=== PATIENT | female | born 1930 | race Caucasian/White ===

== ENCOUNTER 2018-05-22 22:58 | Inpatient (IN) | payer MEDICARE ==
[2018-05-22 22:58] VITALS: BMI 29.8
[2018-05-22] MEDS ORDERED: Morphine 4 MG/ML VIAL IVP STA (23:34)
[2018-05-22] MEDS ORDERED: Sodium Chloride 0.9% 1,000 ML IV STA (23:50)
[2018-05-23] MEDS ORDERED: Morphine 4 MG/ML VIAL ONE (00:04)
[2018-05-23 00:09] LABS: BASO # 0.1 K/uL (0.0-0.2); BASO % 0.5 % (0.0-2.0); EOS % 0.1 % (0.0-4.0); HEMOGLOBIN 12.2 g/dL (12.0-16.0); LYMPH # 2.1 K/uL (1.0-4.3); LYMPH % 14.5 % (20.0-40.0); MEAN CELL VOLUME 93.3 fl (81.0-99.0); MEAN CORPUSCULAR HEMOGLOBIN 31.2 pg (27.0-31.0); MEAN CORPUSCULAR HGB CONC 33.5 g/dL (33.0-37.0); MEAN PLATELET VOLUME 10.2 fl (7.2-11.7); MONO # 0.7 K/uL (0.0-0.8); MONO % 4.7 % (0.0-10.0); NEUT # 11.5 K/uL (1.8-7.0); NEUT % 80.2 % (50.0-75.0); RBC 3.9 Mil/uL (3.80-5.20); RED CELL DISTRIBUTION WIDTH 12.8 % (11.5-14.5); WHITE BLOOD COUNT 14.3 K/uL (4.8-10.8)
[2018-05-23 00:12] LABS: INR 1.1; PROTHROMBIN TIME 11.7 Seconds (9.8-13.1)
[2018-05-23 00:13] LABS: VENOUS BLOOD GAS BASE EXCESS -1.7 mmol/L (0.0-2.0); VENOUS BLOOD GAS PCO2 45 mmHg (40-60); VENOUS BLOOD GAS PO2 21 mm/Hg (30-55); VENOUS BLOOD PH 7.34 (7.32-7.43)
[2018-05-23 00:14] LABS: PARTIAL THROMBOPLASTIN TIME 31.2 Seconds (25.6-37.1)
[2018-05-23] MEDS ORDERED: Insulin Regular 100 units/ml SC STA (00:18)
[2018-05-23] MEDS ORDERED: Insulin Regular 100 units/ml IVP STA (00:18)
[2018-05-23] MEDS ORDERED: Insulin Regular 100 units/ml ONE (00:24)
[2018-05-23 00:28] LABS: ALB/GLOB RATIO 1.2 (1.0-2.1); ALBUMIN 3.9 g/dL (3.5-5.0); CALCIUM 9.2 mg/dL (8.4-10.2)
--- NOTE | 2018-05-23 00:54 | ED PDOC ---
Arrival/HPI - General Chief Complaint: Hip Pain Time Seen by Provider: 05/22/18 23:12 Historian: Patient - History of Present Illness Narrative History of Present Illness (Text): 05/23/18 00:54 86 year old female with a history of htn, dm, and high cholesterol presents to the ED with left hip pain. Around 4 pm today, patient was walking without the walkers she is supposed to use and consequently fell down. She now has sever left hip pain and is unable to ambulate. Patient feels very tired, has loss of appetite, but denies nausea, vomiting, or weakness/numbness to foot. PMD: Dr. Montalvo Time/Duration: Other (x9 hours) Symptom Onset: Sudden Severity Level: Severe Context: Walking (when she fell) Past Medical History - Provider Review Nursing Documentation Reviewed: Yes - Travel History Have you recently traveled outside [place] w/in the past 3 mons?: No - Cardiac Hx Hypertension: Yes Other/Comment: high cholesterol - Pulmonary Hx Asthma: Yes - Renal Hx Renal Disorder: No Hx Dialysis: No - Endocrine/Metabolic Hx Diabetes Mellitus Type 2: Yes Hx Hypothyroidism: Yes - Integumentary Hx Dermatological Disorder: No - Musculoskeletal/Rheumatological Hx Falls: Yes (TODAY) - Genitourinary/Gynecological Hx Genitourinary Disorders: No - Psychiatric Hx Substance Use: No - Surgical History Hx Cholecystectomy: Yes - Anesthesia Hx Anesthesia: No Family/Social History - Physician Review Nursing Documentation Reviewed: Yes Family/Social History: Unknown Family HX Smoking Status: Never Smoked Hx Alcohol Use: No Hx Substance Use: No Allergies/Home Meds Allergies/Adverse Reactions: Allergies No Known Allergies Allergy (Verified 05/22/18 23:00) Home Medications: Home Meds Medication Instructions Recorded Confirmed Glipizide [Glipizide Xl] 10 mg PO BID 12/01/15 12/01/15 Metformin HCl [Glucophage] 500 mg PO BID 12/01/15 12/01/15 SITagliptin [Januvia] 100 mg PO DAILY 12/01/15 12/01/15 Simvastatin [Zocor] 40 mg PO HS 12/01/15 12/01/15 hydroCHLOROthiazide [Hydrodiuril] 25 mg PO DAILY PRN 12/01/15 12/01/15 Review of Systems - Physician Review All systems were reviewed & negative as marked: Yes - Review of Systems Gastrointestinal: Appetite Changes (loss of appetite). absent: Nausea, Vomiting Musculoskeletal: Other (left hip pain ) Neurological: Other (no weakness or numbness to foot) Physical Exam Vital Signs Reviewed: Yes Vital Signs Temp Pulse Resp BP Pulse Ox 05/23/18 18:00 98.6 F 90 15 140/67 99 05/23/18 12:00 98.7 F 88 16 136/70 98 05/23/18 06:25 80 19 125/62 99 05/23/18 03:22 98 H 17 143/69 95 05/22/18 23:00 98.8 F 82 16 139/68 98 Appearance: Positive for: Uncomfortable, Other (acute painful distress) Mental Status: Positive for: Alert and Oriented X 3 Finger Stick Blood Glucose: 500 - Systems Exam Head: Present: Atraumatic, Normocephalic Pupils: Present: PERRL Extroacular Muscles: Present: EOMI Mouth: No: Moist Mucous Membranes (tacky mucous membranes) Pharnyx: Present: Normal (clear) Neck: Present: Normal Range of Motion Respiratory/Chest: Present: Clear to Auscultation. No: Respiratory Distress Cardiovascular: Present: Regular Rate and Rhythm. No: Murmurs Abdomen: No: Tenderness, Distention Upper Extremity: Present: Normal Inspection Lower Extremity: Present: Capillary Refill < 2 s, Other (Left hip held in external rotation and is shortened, normal flexion and extension of knee, normal plantar flexion and dorsiflexion of ankle, light touch intact in left foot, leg roll elicits pain) Neurological: Present: GCS=15, CN II-XII Intact, Speech Normal Skin: Present: Warm, Dry Psychiatric: Present: Alert, Oriented x 3 Medical Decision Making ED Course and Treatment: 05/23/18 01:07 Time: 2325 Initial Impression: Left hip pain Differential diagnoses include but are not limited to: fracture versus contusion or strain Patient found to be hyperglycemia in ER Differential diagnoses include but are not limited to: DKA, HHS, or electrolyte abnormalities Initial Plan: --VBG --EKG --BMP --Creatine phosphokinase --Magnesium --Osmolality --Phosphorus --Urine dip --CBC with differentials --PTT --Prothrombin time --CXR --Morphine 3 mg IVP --Hip XR Time: 0018 --Insulin 10 units Time: 0056 --Orthopedic consult --Labs demonstrate sever hyperglycemia and hyperkalemia. XR demonstrates comminuted let hip fracture. Time: 50 --Case discussed with Dr. Sotomayor for admission. Scribe Attestation: Documented by Reyna Wolfe, acting as a scribe for Anjali Berrios MD Provider Scribe Attestation: All medical record entries made by the Scribe were at my direction and personally dictated by me. I have reviewed the chart and agree that the record accurately reflects my personal performance of the history, physical exam, medical decision making, and the department course for this patient. I have also personally directed, reviewed, and agree with the discharge instructions and disposition. - Lab Interpretations Lab Results: 05/22/18 23:17 05/22/18 23:17 Lab Results 05/22/18 23:46: pO2 21 L, VBG pH 7.34, VBG pCO2 45, VBG HCO3 22.0, VBG Total CO2 25.7, VBG O2 Sat (Calc) 37.2 L, VBG Base Excess -1.7 L, VBG Potassium 6.3 H* , Glucose 600 H*, Lactate 3.0 H, FiO2 21.0, Crit Value Called To Dr anjali berrios, Crit Value Called By , Crit Value Read Back Y, Blood Gas Notified Time 13, Sodium 130.0 L, Chloride 97.0 L, Venous Blood Potassium 6.3 H* 05/22/18 23:17: PT 11.7, INR 1.1, APTT 31.2 05/22/18 23:17: Serum Osmolality 318 H 05/22/18 23:17: Sodium 133, Potassium 6.2 H* D, Chloride 98, Carbon Dioxide 24, Anion Gap 17, BUN 29 H, Creatinine 1.3 H, Est GFR ( Amer) 47, Est GFR ( Non-Af Amer) 39, Random Glucose 593 H* D, Calcium 9.2, Phosphorus 4.1, Magnesium 2.0, Total Bilirubin 1.6 H, AST 61 H, ALT 53 H D, Alkaline Phosphatase 104, Total Creatine Kinase 30, Total Protein 7.1, Albumin 3.9, Globulin 3.1, Albumin/Globulin Ratio 1.2 05/22/18 23:17: WBC 14.3 H D, RBC 3.90, Hgb 12.2, Hct 36.4, MCV 93.3, MCH 31.2 H , MCHC 33.5, RDW 12.8, Plt Count 190, MPV 10.2, Neut % (Auto) 80.2 H, Lymph % ( Auto) 14.5 L, [place] % (Auto) 4.7, Eos % (Auto) 0.1, Baso % (Auto) 0.5, Neut # ( Auto) 11.5 H, Lymph # (Auto) 2.1, [place] # (Auto) 0.7, Eos # (Auto) 0.0, Baso # ( Auto) 0.1 - RAD Interpretation Radiology Orders: 05/22/18 23:25 CHEST ONE VIEW [RAD] Stat HIP MIN 2V W/ PELVIS LT [RAD] Stat - Medication Orders Current Medication Orders: Albuterol/Ipratropium (Duoneb 3 Mg/0.5 Mg (3 Ml) Ud) 3 ml INH RQ6 PRN PRN Reason: Shortness of Breath Last Admin: 05/23/18 03:23 Dose: 3 ml Docusate Sodium (Colace) 100 mg PO BID [facility] Last Admin: 05/24/18 17:33 Dose: 100 mg Ferrous Sulfate (Feosol) 325 mg PO BID [facility] Last Admin: 05/24/18 17:32 Dose: 325 mg Cefazolin Sodium 1 gm/ Sodium (Chloride) 100 mls @ 100 mls/hr IVPB Q12 NILDA PRN Reason: Protocol Last Admin: 05/24/18 20:53 Dose: 100 mls/hr eMAR Start Stop Document 05/24/18 20:53 RM (Rec: 05/24/18 20:54 RM [id number]) Intravenous Solution Start Date 05/24/18 Start Time 20:54 End Date 05/24/18 End time 21:54 Total Infusion Time 60 Sodium Chloride (Sodium Chloride 0.9%) 1,000 mls @ 100 mls/hr IV .Q10H [facility] Stop: 05/25/18 11:46 Last Admin: 05/24/18 13:21 Dose: 100 mls/hr eMAR Start Stop Document 05/24/18 13:21 KMD (Rec: 05/24/18 13:21 KMD [id number]) Intravenous Solution Start Date 05/24/18 Start Time 13:21 Insulin Detemir (Levemir) 10 units SC [facility] Last Admin: 05/23/18 22:08 Dose: 10 u MAR Blood Glucose Document 05/23/18 22:08 FTT (Rec: 05/23/18 22:08 FTT [id number]) Blood Glucose Finger Stick Blood Glucose (70-120) 173 Subcutaneous Administrations Document 05/23/18 22:08 FTT (Rec: 05/23/18 22:08 FTT [id number]) Charges for Administration # of Subcutaneous Administrations 1 Insulin Human Regular (Humulin R) 0 units SC [facility] PRN Reason: Protocol Last Admin: 05/24/18 17:33 Dose: 6 u Subcutaneous Administrations Document 05/24/18 17:33 KMD (Rec: 05/24/18 17:33 KMD [id number]) Injection Site MAR Injection Site Left Arm Charges for Administration # of Subcutaneous Administrations 1 Morphine Sulfate (Morphine) 2 mg IVP Q4 PRN PRN Reason: Pain, severe (8-10) Last Admin: 05/24/18 03:26 Dose: 2 mg MAR Pain Assessment Document 05/24/18 03:26 FTT (Rec: 05/24/18 03:27 FTT [id number]) Pain Reassessment Is this a pain reassessment? No Sleep Is patient sleeping during reassessment? No Presence of Pain Presence of Pain Yes Pain Scale Used Pain Scale Used Numeric Location Left, Right or Bilateral Left Pain Location Body Site Hip Leg Description Description Intermittent Intensity of Pain at present 8 Acceptable Level of Pain 0 Pain Behavior Moaning Irritability Facial Grimacing Aggravating Factors ADL's Alleviating Factors/Management Medication Techniques Alleviating Factors Medication IVP Administration Document 05/24/18 03:26 FTT (Rec: 05/24/18 03:27 FTT [id number]) Charges for Administration # of IVP Administrations 1 Re-Assess: [facility] Pain Reassessment Document 05/24/18 03:56 FTT (Rec: 05/24/18 06:01 FTT [id number]) Sleep Is patient sleeping during reassessment? Yes Pain Reassessment Pain not relieved and LIP/MD was Yes notified Pain Scale Used Numeric Pain Scale Level 0 Morphine Sulfate (Morphine) 1 mg IVP Q4 PRN PRN Reason: Pain, moderate (4-7) Last Admin: 05/24/18 10:46 Dose: 1 mg [facility] Pain Assessment Document 05/24/18 10:46 KMD (Rec: 05/24/18 10:47 KMD [id number]) Pain Reassessment Is this a pain reassessment? No Sleep Is patient sleeping during reassessment? No Presence of Pain Presence of Pain Yes Pain Scale Used Pain Scale Used Numeric Location Left, Right or Bilateral Left Pain Location Body Site Hip Description Description Constant Intensity of Pain at present 7 Pain Behavior Irritability Aggravating Factors Changing Position Alleviating Factors/Management Medication Techniques Inactivity Alleviating Factors Inactivity IVP Administration Document 05/24/18 10:46 KMD (Rec: 05/24/18 10:47 KMD [id number]) Charges for Administration # of IVP Administrations 1 Re-Assess: [facility] Pain Reassessment Document 05/24/18 11:16 KMD (Rec: 05/24/18 13:24 KMD [id number]) Sleep Is patient sleeping during reassessment? Yes Pain Reassessment Pain Scale Used FLACC Pain Scale Level 0 Discontinued Medications Acetaminophen (Tylenol 325mg Tab) 650 mg PO STAT STA Stop: 05/24/18 19:50 Last Admin: 05/24/18 20:08 Dose: 650 mg [facility] Pain/Vitals Document 05/24/18 20:08 RM (Rec: 05/24/18 20:08 RM [id number]) Pain Reassessment Is This A Pain ReAssessment? No Vitals Temperature (97.6 F-99.6 F) 102.2 F Temperature Source Oral Sodium Chloride (Sodium Chloride 0.9%) 1,000 mls @ 1,000 mls/hr IV .Q1H STA Stop: 05/23/18 00:49 Last Admin: 05/23/18 00:05 Dose: 1,000 mls/hr eMAR Start Stop Document 05/23/18 00:05 ARACELIS (Rec: 05/23/18 00:05 ARACELIS [id number]) Intravenous Solution Start Date 05/23/18 Start Time 00:05 End Date 05/23/18 End time 01:05 Total Infusion Time 60 Sodium Chloride (Sodium Chloride 0.9%) 1,000 mls @ 150 mls/hr IV .Q6H40M NILDA Stop: 05/23/18 15:34 Last Admin: 05/23/18 14:13 Dose: 150 mls/hr eMAR Start Stop Document 05/23/18 14:13 [facility] (Rec: 05/23/18 14:13 [id number] Intravenous Solution Start Date 05/23/18 Start Time 14:13 End Date 05/23/18 Insulin Detemir (Levemir) 10 units SC STAT [facility] Stop: 05/23/18 02:04 Last Admin: 05/23/18 03:23 Dose: 10 units Subcutaneous Administrations Document 05/23/18 03:23 RR (Rec: 05/23/18 03:23 RR [id number]) Injection Site MAR Injection Site Right Deltoid Charges for Administration # of Subcutaneous Administrations 1 Insulin Human Regular (Humulin R) 10 units SC STAT ST[facility] Stop: 05/23/18 00:19 Last Admin: 05/23/18 00:30 Dose: 10 units Subcutaneous Administrations Document 05/23/18 00:30 RR (Rec: 05/23/18 00:56 RR [id number]) Injection Site MAR Injection Site Left Deltoid Charges for Administration # of Subcutaneous Administrations 1 Insulin Human Regular (Humulin R) 10 units IVP STAT STA Stop: 05/23/18 00:19 Last Admin: 05/23/18 00:30 Dose: 10 units IVP Administration Document 05/23/18 00:30 RR (Rec: 05/23/18 00:56 RR [id number]) Charges for Administration # of IVP Administrations 1 Insulin Human Regular (Humulin R) 0 units SC Q4H NILDA PRN Reason: Protocol Insulin Human Regular (Humulin R) 0 units SC Q2H NILDA PRN Reason: Protocol Insulin Human Regular (Humulin R) 0 units SC Q4H NILDA PRN Reason: Protocol Last Admin: 05/23/18 17:36 Dose: 3 units Subcutaneous Administrations Document 05/23/18 17:36 MB (Rec: 05/23/18 17:36 MB [id number]) Charges for Administration # of Subcutaneous Administrations 1 Morphine Sulfate (Morphine) 3 mg IVP STAT STA Stop: 05/22/18 23:35 Last Admin: 05/23/18 00:04 Dose: 3 mg [facility] Pain Assessment Document 05/23/18 00:04 ARACELIS (Rec: 05/23/18 00:05 ARACELIS [id number]) Pain Reassessment Is this a pain reassessment? No Sleep Is patient sleeping during reassessment? No Presence of Pain Presence of Pain Yes Pain Scale Used Pain Scale Used Numeric Location Left, Right or Bilateral Left Pain Location Body Site Hip Description Description Constant Intensity of Pain at present 10 IVP Administration Document 05/23/18 00:04 ARACELIS (Rec: 05/23/18 00:05 ARACELIS [id number]) Charges for Administration # of IVP Administrations 1 Re-Assess: [facility] Pain Assessment Document 05/23/18 00:34 RR (Rec: 05/23/18 00:57 RR [id number]) Pain Reassessment Is this a pain reassessment? Yes Sleep Is patient sleeping during reassessment? No Presence of Pain Presence of Pain Yes Location Left, Right or Bilateral Left Pain Location Body Site Hip Disposition/Present on Arrival - Present on Arrival Any Indicators Present on Arrival: Yes History of DVT/PE: No History of Uncontrolled Diabetes: Yes Urinary Catheter: No - Disposition Have Diagnosis and Disposition been Completed?: Yes Diagnosis: Hip fracture, Hyperglycemia Disposition: HOSPITALIZED Disposition Time: 00:00 Patient Problems: Current Active Problems Problem Status Onset Hip fracture Acute Hyperglycemia Acute Condition: GUARDED
--- NOTE | 2018-05-23 01:52 | CP.PCM.HP ---
History of Present Illness - History of Present Illness History of Present Illness: PMD: Dr. Montalvo Chief Complaint: Fall/ Left hip pain The patient was seen and examined in the ED with her family present HPI: The patient speaks Maced[place] and the hx was obtained from the Family members and after review of the medial records. This is an 87 years old female with hx of Asthma, DM II and Hypothyroidism, using a walker at home. Tonight she was ambulating without her walker when she loose balance and fell . She complains of left hip pain. No headaches, dizziness, chest pain, coughing, vomits, Palpitation, diarrhea nor urinary symptoms. PMH: Asthma; DM II; Hypothyroidism; PSH: Family denies Surgical Hx SH: No illegal drug use; Never Smoked; No alcohol use; Live with the family FH: States: No known amily hx Allergies: NKDA Medication: Reviewed Present on Admission - Present on Admission Any Indicators Present on Admission: No History of DVT/PE: No History of Uncontrolled Diabetes: Yes Urinary Catheter: No Decubitus Ulcer Present: No Review of Systems - Constitutional Constitutional: Daytime Sleepiness. absent: Anorexia, Chills, Fever, Headache, Lethargy, Weakness - EENT Eyes: Requires Corrective Lenses. absent: Blurred Vision, Diplopia, Floaters Ears: absent: Decreased Hearing, Ear Discharge, Ear Pain, Tinnitus Nose/Mouth/Throat: absent: Epistaxis, Nasal Congestion, Nasal Discharge - Cardiovascular Cardiovascular: absent: Chest Pain, Dyspnea, Edema, Radiating Pain - Gastrointestinal Gastrointestinal: absent: Abdominal Pain, Diarrhea, Nausea, Vomiting - Genitourinary Genitourinary: absent: Dysuria, Flank Pain, Hematuria, Urinary Frequency - Musculoskeletal Musculoskeletal: Arthralgias. absent: Back Pain, Muscle Weakness, Neck Pain - Integumentary Integumentary: absent: Pruritus, Rash, Skin Ulcer, Sores, Striae, Swelling - Neurological Neurological: absent: Confusion, Numbness, Focal Weakness - Psychiatric Psychiatric: absent: Anxiety, Depression, Panic Attacks - Endocrine Endocrine: Polyuria. absent: Polyphagia - Hematologic/Lymphatic Hematologic: absent: Easy Bleeding, Easy Bruising Past Patient History - Past Medical History & Family History Past Medical History?: Yes - Past Social History Smoking Status: Never Smoked Chewing Tobacco Use: No Cigar Use: No Alcohol: None Drugs: Denies Home Situation {Lives}: With Family - CARDIAC Hx Hypertension: Yes Other/Comment: high cholesterol - PULMONARY Hx Asthma: Yes - NEUROLOGICAL Hx Neurological Disorder: No - RENAL Hx Chronic Kidney Disease: No Hx Dialysis: No - ENDOCRINE/METABOLIC Hx Diabetes Mellitus Type 2: Yes Hx Hypothyroidism: Yes - INTEGUMENTARY Hx Dermatological Problems: No - MUSCULOSKELETAL/RHEUMATOLOGICAL Hx Falls: Yes (TODAY) - GASTROINTESTINAL Hx Gastrointestinal Disorders: No - GENITOURINARY/GYNECOLOGICAL Hx Genitourinary Disorders: No - PSYCHIATRIC Hx Psychophysiologic Disorder: No Hx Substance Use: No - SURGICAL HISTORY Hx Cholecystectomy: Yes - ANESTHESIA Hx Anesthesia: No Meds Allergies/Adverse Reactions: Allergies Allergy/AdvReac Type Severity Reaction Status Date / Time No Known Allergies Allergy Verified 05/22/18 23:00 Physical Exam - Constitutional Appears: No Acute Distress - Head Exam Head Exam: ATRAUMATIC, NORMAL INSPECTION, NORMOCEPHALIC - Eye Exam Eye Exam: EOMI, Normal appearance Pupil Exam: NORMAL ACCOMODATION, PERRL - ENT Exam ENT Exam: Mucous Membranes Moist, Normal Exam, Normal External Ear Exam - Neck Exam Neck exam: Positive for: Full Rom, Normal Inspection. Negative for: Lymphadenopathy, Tenderness - Respiratory Exam Respiratory Exam: Clear to Auscultation Bilateral. absent: Rales, Rhonchi, Wheezes - Cardiovascular Exam Cardiovascular Exam: REGULAR RHYTHM, +S1, +S2. absent: Gallop, JVD - GI/Abdominal Exam GI & Abdominal Exam: Normal Bowel Sounds, Soft. absent: Mass, Organomegaly, Tenderness - Rectal Exam Rectal Exam: Deferred - Extremities Exam Extremities exam: Positive for: full ROM, normal inspection, tenderness. Negative for: calf tenderness, joint swelling, pedal edema - Back Exam Back exam: NORMAL INSPECTION. absent: CVA tenderness (L), CVA tenderness (R) - Neurological Exam Neurological exam: Alert, CN II-XII Intact, Oriented x3, Reflexes Normal - Psychiatric Exam Psychiatric exam: Normal Affect, Normal Mood - Skin Skin Exam: Intact, Normal Color, Warm Results - Vital Signs Recent Vital Signs: Last Vital Signs Temp 98.8 F 05/22/18 23:00 Pulse 82 05/22/18 23:00 Resp 16 05/22/18 23:00 BP 139/68 05/22/18 23:00 Pulse Ox 98 05/22/18 23:00 - Labs Result Diagrams: 05/22/18 23:17 05/23/18 03:00 Labs: Laboratory Results - last 24 hr 05/22/18 05/22/18 05/22/18 23:17 23:17 23:17 WBC 14.3 H D RBC 3.90 Hgb 12.2 Hct 36.4 MCV 93.3 MCH 31.2 H MCHC 33.5 RDW 12.8 Plt Count 190 MPV 10.2 Neut % (Auto) 80.2 H Lymph % (Auto) 14.5 L [place] % (Auto) 4.7 Eos % (Auto) 0.1 Baso % (Auto) 0.5 Neut # (Auto) 11.5 H Lymph # (Auto) 2.1 [place] # (Auto) 0.7 Eos # (Auto) 0.0 Baso # (Auto) 0.1 PT INR APTT pO2 VBG pH VBG pCO2 VBG HCO3 VBG Total CO2 VBG O2 Sat (Calc) VBG Base Excess VBG Potassium Glucose Lactate FiO2 Crit Value Called To Crit Value Called By Crit Value Read Back Blood Gas Notified Time Sodium 133 Potassium 6.2 H* D Chloride 98 Carbon Dioxide 24 Anion Gap 17 BUN 29 H Creatinine 1.3 H Est GFR ( Amer) 47 Est GFR (Non-Af Amer) 39 Random Glucose 593 H* D Serum Osmolality 318 H Calcium 9.2 Phosphorus 4.1 Magnesium 2.0 Total Bilirubin 1.6 H AST 61 H ALT 53 H D Alkaline Phosphatase 104 Total Creatine Kinase 30 Total Protein 7.1 Albumin 3.9 Globulin 3.1 Albumin/Globulin Ratio 1.2 Venous Blood Potassium 05/22/18 05/22/18 23:17 23:46 WBC RBC Hgb Hct MCV MCH MCHC RDW Plt Count MPV Neut % (Auto) Lymph % (Auto) [place] % (Auto) Eos % (Auto) Baso % (Auto) Neut # (Auto) Lymph # (Auto) [place] # (Auto) Eos # (Auto) Baso # (Auto) PT 11.7 INR 1.1 APTT 31.2 pO2 21 L VBG pH 7.34 VBG pCO2 45 VBG HCO3 22.0 VBG Total CO2 25.7 VBG O2 Sat (Calc) 37.2 L VBG Base Excess -1.7 L VBG Potassium 6.3 H* Glucose 600 H* Lactate 3.0 H FiO2 21.0 Crit Value Called To Dr anjali berrios Crit Value Called By Luis Crit Value Read Back Y Blood Gas Notified Time 13 Sodium 130.0 L Potassium Chloride 97.0 L Carbon Dioxide Anion Gap BUN Creatinine Est GFR ( Amer) Est GFR (Non-Af Amer) Random Glucose Serum Osmolality Calcium Phosphorus Magnesium Total Bilirubin AST ALT Alkaline Phosphatase Total Creatine Kinase Total Protein Albumin Globulin Albumin/Globulin Ratio Venous Blood Potassium 6.3 H* - EKG Data EKG comments: NSR 75/min LAD IVCD - Imaging and Cardiology Chest x-ray Status: Image reviewed by me Additional comment: Cardiomegaly No infiltrates X-Ray left hip Status: Image reviewed by me Additional comment: left Intertrochanteric fracture Assessment & Plan - Assessment and Plan (Free Text) Assessment: #. Left Intertrochanteric hip Fracture #. DM II with hyperglycemia #. Hyperkalemia #. Dehydration #. UTI #. Leukocytosis Plan: 87 years old female with hx of Asthma, DM II and Hypothyroidism, not using her walker at home tonight, loose her balance and fell . She complains of left hip pain. #. Left Intertrochanteric hip Fracture - consult Orthopedic Dr Carmichael - Orthopedic Management - Pain Management - NPO - Cardiac Clearance by Dr Ruvalcaba #. DM II with hyperglycemia - IV fluids 1 liter in ED . Continue iwth NS at 150Mls/hr - Regular insulin Sliding scale according to accucheck Q2H and change to Q6 when Glucose is less than 200mg/dl - Levemir - Hold Metformin/Januvia/Glipizide - HbA1c #. Hyperkalemia most likely secondary to the hyperglycemia - Treat hyperglycemia - Follow electrolytes #. UTI - Cefazolin 1gm Q12 - follow Urine culture - Blood culture #. Dehydration - IV fluids - follow Renal labs #. Neutrophilic Leukocytosis reactive - Follow WBC #. DVT prophylaxis with SCD Start Anticoagulant after surgery #. Code Status: Full - Date & Time Date: 05/23/18 Time: 01:52
[2018-05-23] MEDS ORDERED: Insulin Regular 100 units/ml SC SCH ×2 (02:00→02:01)
[2018-05-23] MEDS ORDERED: Insulin Detemir 100 Units/ml Inj SC STA (02:03)
[2018-05-23 02:32] LABS: SQUAMOUS EPITHIAL < 1 /hpf (0-5); URINE BACTERIA OCC (<OCC); URINE BILIRUBIN NEGATIVE (NEGATIVE); URINE BLOOD NEGATIVE (NEGATIVE); URINE CLARITY CLOUDY (Clear); URINE COLOR YELLOW (YELLOW); URINE GLUCOSE (UA) >=500 mg/dL (Normal); URINE LEUKOCYTE ESTERASE LARGE Leu/uL (Negative); URINE PROTEIN NEGATIVE (NEGATIVE); URINE UROBILINOGEN 0.2-1.0 mg/dL (0.2-1.0); WBC CLUMPS MANY /hpf
[2018-05-23] MEDS: Sodium Chloride 0.9% 1,000 ML IV SCH ×2 (02:38→14:13)
[2018-05-23] MEDS ORDERED: Albuterol-Ipratrop 3 mg / 0.5 (3 ml) UD ONE (03:07)
[2018-05-23] MEDS: Albuterol-Ipratrop 3 mg / 0.5 (3 ml) UD INH PRN (03:23)
[2018-05-23 03:48] LABS: CALCIUM 8.6 mg/dL (8.4-10.2)
[2018-05-23] MEDS: ceFAZolin 1 GM in Sodium Chloride 0.9% 100 ML IVPB SCH ×3 (04:33→21:57)
[2018-05-23 07:34] LABS: ALB/GLOB RATIO 1.1 (1.0-2.1); ALBUMIN 3.1 g/dL (3.5-5.0); CALCIUM 8.6 mg/dL (8.4-10.2)
[2018-05-23] MEDS: Insulin Regular 100 units/ml SC SCH ×4 (08:44→22:05)
--- NOTE | 2018-05-23 09:45 | RAD ---
Date of service: 05/23/2018 HISTORY: LEFT hip pain s/p fall COMPARISON: No prior FINDINGS: BONES: Comminuted fracture of the femoral neck. JOINTS: Normal. No osteoarthritis. SOFT TISSUE: Normal. OTHER FINDINGS: None . IMPRESSION: Comminuted fracture of the femoral neck.
--- NOTE | 2018-05-23 09:55 | RAD ---
Date of service: 05/23/2018 PROCEDURE: CHEST RADIOGRAPH, 1 VIEW HISTORY: hip pain fall COMPARISON: None available. FINDINGS: LUNGS: Clear. PLEURA: No pneumothorax or pleural fluid seen. CARDIOVASCULAR: Normal. OSSEOUS STRUCTURES: No significant abnormalities. VISUALIZED UPPER ABDOMEN: Normal. OTHER FINDINGS: None. IMPRESSION: No active disease.
--- NOTE | 2018-05-23 10:15 | CP.PCM.CON ---
History of Present Illness - History of Present Illness History of Present Illness: ID: 87 yo male CC: severe pain and restricted ROM L HIP; pt with shortening and external rotation L lower extremity HPI: 87 yo female presents s/p fall and torsional injury to L lower extremity. Pt presents with severe discomfort, pain nand rstricted ROM L lowere xtremity and inability to bear weight after pt had sustained torsional injury to L lower extremity. Pt presents with marked discomfort, pain and rstricted L lhip ROM Pt admitted for medical stabilization and for ORIF Friday Past Patient History - Past Medical History & Family History Past Medical History?: Yes - Past Social History Smoking Status: Never Smoked Chewing Tobacco Use: No Cigar Use: No Alcohol: None Drugs: Denies Home Situation {Lives}: With Family - CARDIAC Hx Hypertension: Yes Other/Comment: high cholesterol - PULMONARY Hx Asthma: Yes - NEUROLOGICAL Hx Neurological Disorder: No - RENAL Hx Chronic Kidney Disease: No Hx Dialysis: No - ENDOCRINE/METABOLIC Hx Diabetes Mellitus Type 2: Yes Hx Hypothyroidism: Yes - INTEGUMENTARY Hx Dermatological Problems: No - MUSCULOSKELETAL/RHEUMATOLOGICAL Hx Falls: Yes (TODAY) - GASTROINTESTINAL Hx Gastrointestinal Disorders: No - GENITOURINARY/GYNECOLOGICAL Hx Genitourinary Disorders: No - PSYCHIATRIC Hx Psychophysiologic Disorder: No Hx Substance Use: No - SURGICAL HISTORY Hx Cholecystectomy: Yes - ANESTHESIA Hx Anesthesia: No Meds Allergies/Adverse Reactions: Allergies Allergy/AdvReac Type Severity Reaction Status Date / Time No Known Allergies Allergy Verified 05/22/18 23:00 - Medications Medications: Current Medications Albuterol/Ipratropium (Duoneb 3 Mg/0.5 Mg (3 Ml) Ud) 3 ml INH RQ6 PRN PRN Reason: Shortness of Breath Last Admin: 05/23/18 03:23 Dose: 3 ml Sodium Chloride (Sodium Chloride 0.9%) 1,000 mls @ 150 mls/hr IV .Q6H40M NILDA Stop: 05/23/18 15:34 Last Admin: 05/23/18 02:38 Dose: 150 mls/hr Cefazolin Sodium 1 gm/ Sodium (Chloride) 100 mls @ 100 mls/hr IVPB Q12 NILDA PRN Reason: Protocol Last Admin: 05/23/18 04:33 Dose: 100 mls/hr Insulin Detemir (Levemir) 10 units SC HS NILDA Insulin Human Regular (Humulin R) 0 units SC Q4H NILDA PRN Reason: Protocol Last Admin: 05/23/18 08:44 Dose: 6 units Morphine Sulfate (Morphine) 2 mg IVP Q4 PRN PRN Reason: Pain, severe (8-10) Morphine Sulfate (Morphine) 1 mg IVP Q4 PRN PRN Reason: Pain, moderate (4-7) Last Admin: 05/23/18 08:49 Dose: 1 mg Physical Exam - Additional Findings Additional findings: Sustemic- wnl Musculoskeletal stance/gait- defrred pt with shortening and external rotation L lower extremity N/V intact Results - Vital Signs Recent Vital Signs: Last Vital Signs Temp 98.8 F 05/22/18 23:00 Pulse 80 05/23/18 06:25 Resp 19 05/23/18 06:25 BP 125/62 05/23/18 06:25 Pulse Ox 99 05/23/18 06:25 - Labs Result Diagrams: 05/22/18 23:17 05/23/18 05:20 Labs: Laboratory Results - last 24 hr 05/22/18 05/22/18 05/22/18 23:17 23:17 23:17 WBC 14.3 H D RBC 3.90 Hgb 12.2 Hct 36.4 MCV 93.3 MCH 31.2 H MCHC 33.5 RDW 12.8 Plt Count 190 MPV 10.2 Neut % (Auto) 80.2 H Lymph % (Auto) 14.5 L [place] % (Auto) 4.7 Eos % (Auto) 0.1 Baso % (Auto) 0.5 Neut # (Auto) 11.5 H Lymph # (Auto) 2.1 [place] # (Auto) 0.7 Eos # (Auto) 0.0 Baso # (Auto) 0.1 PT INR APTT pO2 VBG pH VBG pCO2 VBG HCO3 VBG Total CO2 VBG O2 Sat (Calc) VBG Base Excess VBG Potassium Glucose Lactate FiO2 Crit Value Called To Crit Value Called By Crit Value Read Back Blood Gas Notified Time Sodium 133 Potassium 6.2 H* D Chloride 98 Carbon Dioxide 24 Anion Gap 17 BUN 29 H Creatinine 1.3 H Est GFR ( Amer) 47 Est GFR (Non-Af Amer) 39 POC Glucose (mg/dL) Random Glucose 593 H* D Serum Osmolality 318 H Calcium 9.2 Phosphorus 4.1 Magnesium 2.0 Total Bilirubin 1.6 H AST 61 H ALT 53 H D Alkaline Phosphatase 104 Total Creatine Kinase 30 Troponin I Total Protein 7.1 Albumin 3.9 Globulin 3.1 Albumin/Globulin Ratio 1.2 Venous Blood Potassium Urine Color Urine Clarity Urine pH Ur Specific [place] Urine Protein Urine Glucose (UA) Urine Ketones Urine Blood Urine Nitrate Urine Bilirubin Urine Urobilinogen Ur Leukocyte Esterase Urine RBC (Auto) Urine WBC Clumps (Auto) Urine Microscopic WBC Ur Squamous Epith Cells Urine Bacteria 05/22/18 05/22/18 05/23/18 23:17 23:46 01:35 WBC RBC Hgb Hct MCV MCH MCHC RDW Plt Count MPV Neut % (Auto) Lymph % (Auto) [place] % (Auto) Eos % (Auto) Baso % (Auto) Neut # (Auto) Lymph # (Auto) [place] # (Auto) Eos # (Auto) Baso # (Auto) PT 11.7 INR 1.1 APTT 31.2 pO2 21 L VBG pH 7.34 VBG pCO2 45 VBG HCO3 22.0 VBG Total CO2 25.7 VBG O2 Sat (Calc) 37.2 L VBG Base Excess -1.7 L VBG Potassium 6.3 H* Glucose 600 H* Lactate 3.0 H FiO2 21.0 Crit Value Called To Dr anjali berrios Crit Value Called By Luis Crit Value Read Back Y Blood Gas Notified Time 13 Sodium 130.0 L Potassium Chloride 97.0 L Carbon Dioxide Anion Gap BUN Creatinine Est GFR ( Amer) Est GFR (Non-Af Amer) POC Glucose (mg/dL) 410 H* Random Glucose Serum Osmolality Calcium Phosphorus Magnesium Total Bilirubin AST ALT Alkaline Phosphatase Total Creatine Kinase Troponin I Total Protein Albumin Globulin Albumin/Globulin Ratio Venous Blood Potassium 6.3 H* Urine Color Urine Clarity Urine pH Ur Specific [place] Urine Protein Urine Glucose (UA) Urine Ketones Urine Blood Urine Nitrate Urine Bilirubin Urine Urobilinogen Ur Leukocyte Esterase Urine RBC (Auto) Urine WBC Clumps (Auto) Urine Microscopic WBC Ur Squamous Epith Cells Urine Bacteria 05/23/18 05/23/18 05/23/18 02:00 02:37 03:00 WBC RBC Hgb Hct MCV MCH MCHC RDW Plt Count MPV Neut % (Auto) Lymph % (Auto) [place] % (Auto) Eos % (Auto) Baso % (Auto) Neut # (Auto) Lymph # (Auto) [place] # (Auto) Eos # (Auto) Baso # (Auto) PT INR APTT pO2 VBG pH VBG pCO2 VBG HCO3 VBG Total CO2 VBG O2 Sat (Calc) VBG Base Excess VBG Potassium Glucose Lactate FiO2 Crit Value Called To Crit Value Called By Crit Value Read Back Blood Gas Notified Time Sodium 136 Potassium 5.1 H Chloride 104 Carbon Dioxide 21 L Anion Gap 16 BUN 28 H Creatinine 1.1 Est GFR ( Amer) 57 Est GFR (Non-Af Amer) 47 POC Glucose (mg/dL) 391 H Random Glucose 383 H Serum Osmolality Calcium 8.6 Phosphorus Magnesium Total Bilirubin AST ALT Alkaline Phosphatase Total Creatine Kinase Troponin I Total Protein Albumin Globulin Albumin/Globulin Ratio Venous Blood Potassium Urine Color Yellow Urine Clarity Cloudy Urine pH 5.0 Ur Specific [place] 1.018 Urine Protein Negative Urine Glucose (UA) >=500 Urine Ketones Negative Urine Blood Negative Urine Nitrate Positive H Urine Bilirubin Negative Urine Urobilinogen 0.2-1.0 Ur Leukocyte Esterase Large Urine RBC (Auto) 1 Urine WBC Clumps (Auto) Many H Urine Microscopic WBC 69 H Ur Squamous Epith Cells < 1 Urine Bacteria Occ H 05/23/18 05/23/18 05/23/18 05:20 06:41 08:11 WBC RBC Hgb Hct MCV MCH MCHC RDW Plt Count MPV Neut % (Auto) Lymph % (Auto) [place] % (Auto) Eos % (Auto) Baso % (Auto) Neut # (Auto) Lymph # (Auto) [place] # (Auto) Eos # (Auto) Baso # (Auto) PT INR APTT pO2 VBG pH VBG pCO2 VBG HCO3 VBG Total CO2 VBG O2 Sat (Calc) VBG Base Excess VBG Potassium Glucose Lactate FiO2 Crit Value Called To Crit Value Called By Crit Value Read Back Blood Gas Notified Time Sodium 137 Potassium 5.2 H Chloride 106 Carbon Dioxide 23 Anion Gap 13 BUN 28 H Creatinine 1.1 Est GFR ( Amer) 57 Est GFR (Non-Af Amer) 47 POC Glucose (mg/dL) 329 H Random Glucose 335 H Serum Osmolality Calcium 8.6 Phosphorus Magnesium 2.1 Total Bilirubin 0.8 AST 45 H D ALT 42 Alkaline Phosphatase 74 Total Creatine Kinase Troponin I 0.0200 Total Protein 6.1 L Albumin 3.1 L D Globulin 2.9 Albumin/Globulin Ratio 1.1 Venous Blood Potassium Urine Color Urine Clarity Urine pH Ur Specific [place] Urine Protein Urine Glucose (UA) Urine Ketones Urine Blood Urine Nitrate Urine Bilirubin Urine Urobilinogen Ur Leukocyte Esterase Urine RBC (Auto) Urine WBC Clumps (Auto) Urine Microscopic WBC Ur Squamous Epith Cells Urine Bacteria 05/23/18 08:35 WBC RBC Hgb Hct MCV MCH MCHC RDW Plt Count MPV Neut % (Auto) Lymph % (Auto) [place] % (Auto) Eos % (Auto) Baso % (Auto) Neut # (Auto) Lymph # (Auto) [place] # (Auto) Eos # (Auto) Baso # (Auto) PT INR APTT pO2 VBG pH VBG pCO2 VBG HCO3 VBG Total CO2 VBG O2 Sat (Calc) VBG Base Excess VBG Potassium Glucose Lactate FiO2 Crit Value Called To Crit Value Called By Crit Value Read Back Blood Gas Notified Time Sodium Potassium Chloride Carbon Dioxide Anion Gap BUN Creatinine Est GFR ( Amer) Est GFR (Non-Af Amer) POC Glucose (mg/dL) 330 H Random Glucose Serum Osmolality Calcium Phosphorus Magnesium Total Bilirubin AST ALT Alkaline Phosphatase Total Creatine Kinase Troponin I Total Protein Albumin Globulin Albumin/Globulin Ratio Venous Blood Potassium Urine Color Urine Clarity Urine pH Ur Specific [place] Urine Protein Urine Glucose (UA) Urine Ketones Urine Blood Urine Nitrate Urine Bilirubin Urine Urobilinogen Ur Leukocyte Esterase Urine RBC (Auto) Urine WBC Clumps (Auto) Urine Microscopic WBC Ur Squamous Epith Cells Urine Bacteria - Impressions Impression: Xray pt with dispolaced/comminuted pathologic (osteopenia) imntertrochanteric L femur fx CT scan pending for preop planning Assessment & Plan - Assessment and Plan (Free Text) Assessment: A- pathologic (osteopenia) L intertriochganteric L fmeur fx medical stabilization- then to OR for ORIF: possibility of mechganical failutre/ infection, thromboembolic disease/ pssibility of secondary or tertiary surtgeyr discussed; no promises/guarantees COnsent obtained from pt and her son Marco A thru the culturally competyent ntranslator ( elexctronic translation)
--- NOTE | 2018-05-23 10:29 | CT ---
Date of service: 05/23/2018 PROCEDURE: CT of the Left Hip. HISTORY: Left Hip Fracture COMPARISON: None available. TECHNIQUE: Contiguous axial images of the left hip were obtained. Coronal and sagittal reformats were generated. This CT exam was performed using one or more of the following dose reduction techniques: Automated exposure control, adjustment of the mA and/or kV according to patient size, and/or use of iterative reconstruction technique. FINDINGS: BONES: Comminuted fracture of the intertrochanteric portion of the left femoral neck with slight elevation of the femoral shaft. Femoral head maintains normal contour. LEFT HIP JOINT: Unremarkable. No dislocation. No degenerative changes. SOFT TISSUES: Unremarkable. IMPRESSION: Comminuted fracture of the intertrochanteric portion of the left femoral neck with slight elevation of the femoral shaft.
--- NOTE | 2018-05-23 10:49 | CARD ---
APPROVED REPORT Date of service: 05/22/2018 <Conclusion> Normal sinus rhythm Left axis deviation Left bundle branch block Abnormal ECG
--- NOTE | 2018-05-23 13:59 | CP.PCM.CON ---
History of Present Illness - History of Present Illness History of Present Illness: THE PATIENT IS AN 87 YEAR OLD FEMALE WITH A HISTORY OF ASTHMA, TYPE 2 DM AND HYPOTHYROIDISM. SHE HAS AN UNSTEADY GAIT AND USES A WALKER. SHE WAS AMBULATING AT HOME WITHOUT A WALKER AND FELL AND SUSTAINED A LEFT HIP FRACTURE. CARDIOLOGY WAS ASKED TO SEE HER FOR CARDIAC CLEARANCE. SHE DENIES CHEST PAIN , PALPITATIONS OR SOB. IN THE ER SHE WAS NOTED TO HAVE AN ELEVATED GLUCOSE LEVEL OF 391 AND AN ABNORMAL UA C/W A UTI SO SURGERY WAS DEFERRED UNTIL SHE WAS MEDICALLY STABLE. Past Patient History - Past Medical History & Family History Past Medical History?: Yes - Past Social History Smoking Status: Never Smoked Chewing Tobacco Use: No Cigar Use: No Alcohol: None Drugs: Denies Home Situation {Lives}: With Family - CARDIAC Hx Hypertension: Yes Other/Comment: high cholesterol - PULMONARY Hx Asthma: Yes - NEUROLOGICAL Hx Neurological Disorder: No - RENAL Hx Chronic Kidney Disease: No Hx Dialysis: No - ENDOCRINE/METABOLIC Hx Diabetes Mellitus Type 2: Yes Hx Hypothyroidism: Yes - INTEGUMENTARY Hx Dermatological Problems: No - MUSCULOSKELETAL/RHEUMATOLOGICAL Hx Falls: Yes (TODAY) - GASTROINTESTINAL Hx Gastrointestinal Disorders: No - GENITOURINARY/GYNECOLOGICAL Hx Genitourinary Disorders: No - PSYCHIATRIC Hx Psychophysiologic Disorder: No Hx Substance Use: No - SURGICAL HISTORY Hx Cholecystectomy: Yes - ANESTHESIA Hx Anesthesia: No Meds Allergies/Adverse Reactions: Allergies Allergy/AdvReac Type Severity Reaction Status Date / Time No Known Allergies Allergy Verified 05/22/18 23:00 - Medications Medications: Current Medications Albuterol/Ipratropium (Duoneb 3 Mg/0.5 Mg (3 Ml) Ud) 3 ml INH RQ6 PRN PRN Reason: Shortness of Breath Last Admin: 05/23/18 03:23 Dose: 3 ml Sodium Chloride (Sodium Chloride 0.9%) 1,000 mls @ 150 mls/hr IV .Q6H40M NILDA Stop: 05/23/18 15:34 Last Admin: 05/23/18 02:38 Dose: 150 mls/hr Cefazolin Sodium 1 gm/ Sodium (Chloride) 100 mls @ 100 mls/hr IVPB Q12 NILDA PRN Reason: Protocol Last Admin: 05/23/18 04:33 Dose: 100 mls/hr Insulin Detemir (Levemir) 10 units SC HS NILDA Insulin Human Regular (Humulin R) 0 units SC Q4H NILDA PRN Reason: Protocol Last Admin: 05/23/18 12:58 Dose: 6 units Morphine Sulfate (Morphine) 2 mg IVP Q4 PRN PRN Reason: Pain, severe (8-10) Morphine Sulfate (Morphine) 1 mg IVP Q4 PRN PRN Reason: Pain, moderate (4-7) Last Admin: 05/23/18 08:49 Dose: 1 mg Physical Exam - Respiratory Exam Respiratory Exam: Clear to Auscultation Bilateral - Cardiovascular Exam Cardiovascular Exam: REGULAR RHYTHM, +S1, +S2 - Additional Findings Additional findings: K+ 5.1 BS 391 TROPONIN NORMAL EKG NSR, LBBB ECHO GOOD LV FUNCTION, MILD LAE CXR NAD Results - Vital Signs Recent Vital Signs: Last Vital Signs Temp 98.8 F 05/22/18 23:00 Pulse 80 05/23/18 06:25 Resp 19 05/23/18 06:25 BP 125/62 05/23/18 06:25 Pulse Ox 99 05/23/18 06:25 - Labs Result Diagrams: 05/22/18 23:17 05/23/18 05:20 Labs: Laboratory Results - last 24 hr 05/22/18 05/22/18 05/22/18 23:17 23:17 23:17 WBC 14.3 H D RBC 3.90 Hgb 12.2 Hct 36.4 MCV 93.3 MCH 31.2 H MCHC 33.5 RDW 12.8 Plt Count 190 MPV 10.2 Neut % (Auto) 80.2 H Lymph % (Auto) 14.5 L [place] % (Auto) 4.7 Eos % (Auto) 0.1 Baso % (Auto) 0.5 Neut # (Auto) 11.5 H Lymph # (Auto) 2.1 [place] # (Auto) 0.7 Eos # (Auto) 0.0 Baso # (Auto) 0.1 PT INR APTT pO2 VBG pH VBG pCO2 VBG HCO3 VBG Total CO2 VBG O2 Sat (Calc) VBG Base Excess VBG Potassium Glucose Lactate FiO2 Crit Value Called To Crit Value Called By Crit Value Read Back Blood Gas Notified Time Sodium 133 Potassium 6.2 H* D Chloride 98 Carbon Dioxide 24 Anion Gap 17 BUN 29 H Creatinine 1.3 H Est GFR ( Amer) 47 Est GFR (Non-Af Amer) 39 POC Glucose (mg/dL) Random Glucose 593 H* D Serum Osmolality 318 H Calcium 9.2 Phosphorus 4.1 Magnesium 2.0 Total Bilirubin 1.6 H AST 61 H ALT 53 H D Alkaline Phosphatase 104 Total Creatine Kinase 30 Troponin I Total Protein 7.1 Albumin 3.9 Globulin 3.1 Albumin/Globulin Ratio 1.2 Venous Blood Potassium Urine Color Urine Clarity Urine pH Ur Specific [place] Urine Protein Urine Glucose (UA) Urine Ketones Urine Blood Urine Nitrate Urine Bilirubin Urine Urobilinogen Ur Leukocyte Esterase Urine RBC (Auto) Urine WBC Clumps (Auto) Urine Microscopic WBC Ur Squamous Epith Cells Urine Bacteria 05/22/18 05/22/18 05/23/18 23:17 23:46 01:35 WBC RBC Hgb Hct MCV MCH MCHC RDW Plt Count MPV Neut % (Auto) Lymph % (Auto) [place] % (Auto) Eos % (Auto) Baso % (Auto) Neut # (Auto) Lymph # (Auto) [place] # (Auto) Eos # (Auto) Baso # (Auto) PT 11.7 INR 1.1 APTT 31.2 pO2 21 L VBG pH 7.34 VBG pCO2 45 VBG HCO3 22.0 VBG Total CO2 25.7 VBG O2 Sat (Calc) 37.2 L VBG Base Excess -1.7 L VBG Potassium 6.3 H* Glucose 600 H* Lactate 3.0 H FiO2 21.0 Crit Value Called To Dr anjali berrios Crit Value Called By Luis Crit Value Read Back Y Blood Gas Notified Time 13 Sodium 130.0 L Potassium Chloride 97.0 L Carbon Dioxide Anion Gap BUN Creatinine Est GFR ( Amer) Est GFR (Non-Af Amer) POC Glucose (mg/dL) 410 H* Random Glucose Serum Osmolality Calcium Phosphorus Magnesium Total Bilirubin AST ALT Alkaline Phosphatase Total Creatine Kinase Troponin I Total Protein Albumin Globulin Albumin/Globulin Ratio Venous Blood Potassium 6.3 H* Urine Color Urine Clarity Urine pH Ur Specific [place] Urine Protein Urine Glucose (UA) Urine Ketones Urine Blood Urine Nitrate Urine Bilirubin Urine Urobilinogen Ur Leukocyte Esterase Urine RBC (Auto) Urine WBC Clumps (Auto) Urine Microscopic WBC Ur Squamous Epith Cells Urine Bacteria 05/23/18 05/23/18 05/23/18 02:00 02:37 03:00 WBC RBC Hgb Hct MCV MCH MCHC RDW Plt Count MPV Neut % (Auto) Lymph % (Auto) [place] % (Auto) Eos % (Auto) Baso % (Auto) Neut # (Auto) Lymph # (Auto) [place] # (Auto) Eos # (Auto) Baso # (Auto) PT INR APTT pO2 VBG pH VBG pCO2 VBG HCO3 VBG Total CO2 VBG O2 Sat (Calc) VBG Base Excess VBG Potassium Glucose Lactate FiO2 Crit Value Called To Crit Value Called By Crit Value Read Back Blood Gas Notified Time Sodium 136 Potassium 5.1 H Chloride 104 Carbon Dioxide 21 L Anion Gap 16 BUN 28 H Creatinine 1.1 Est GFR ( Amer) 57 Est GFR (Non-Af Amer) 47 POC Glucose (mg/dL) 391 H Random Glucose 383 H Serum Osmolality Calcium 8.6 Phosphorus Magnesium Total Bilirubin AST ALT Alkaline Phosphatase Total Creatine Kinase Troponin I Total Protein Albumin Globulin Albumin/Globulin Ratio Venous Blood Potassium Urine Color Yellow Urine Clarity Cloudy Urine pH 5.0 Ur Specific [place] 1.018 Urine Protein Negative Urine Glucose (UA) >=500 Urine Ketones Negative Urine Blood Negative Urine Nitrate Positive H Urine Bilirubin Negative Urine Urobilinogen 0.2-1.0 Ur Leukocyte Esterase Large Urine RBC (Auto) 1 Urine WBC Clumps (Auto) Many H Urine Microscopic WBC 69 H Ur Squamous Epith Cells < 1 Urine Bacteria Occ H 05/23/18 05/23/18 05/23/18 05:20 06:41 08:11 WBC RBC Hgb Hct MCV MCH MCHC RDW Plt Count MPV Neut % (Auto) Lymph % (Auto) [place] % (Auto) Eos % (Auto) Baso % (Auto) Neut # (Auto) Lymph # (Auto) [place] # (Auto) Eos # (Auto) Baso # (Auto) PT INR APTT pO2 VBG pH VBG pCO2 VBG HCO3 VBG Total CO2 VBG O2 Sat (Calc) VBG Base Excess VBG Potassium Glucose Lactate FiO2 Crit Value Called To Crit Value Called By Crit Value Read Back Blood Gas Notified Time Sodium 137 Potassium 5.2 H Chloride 106 Carbon Dioxide 23 Anion Gap 13 BUN 28 H Creatinine 1.1 Est GFR ( Amer) 57 Est GFR (Non-Af Amer) 47 POC Glucose (mg/dL) 329 H Random Glucose 335 H Serum Osmolality Calcium 8.6 Phosphorus Magnesium 2.1 Total Bilirubin 0.8 AST 45 H D ALT 42 Alkaline Phosphatase 74 Total Creatine Kinase Troponin I 0.0200 Total Protein 6.1 L Albumin 3.1 L D Globulin 2.9 Albumin/Globulin Ratio 1.1 Venous Blood Potassium Urine Color Urine Clarity Urine pH Ur Specific [place] Urine Protein Urine Glucose (UA) Urine Ketones Urine Blood Urine Nitrate Urine Bilirubin Urine Urobilinogen Ur Leukocyte Esterase Urine RBC (Auto) Urine WBC Clumps (Auto) Urine Microscopic WBC Ur Squamous Epith Cells Urine Bacteria 05/23/18 08:35 WBC RBC Hgb Hct MCV MCH MCHC RDW Plt Count MPV Neut % (Auto) Lymph % (Auto) [place] % (Auto) Eos % (Auto) Baso % (Auto) Neut # (Auto) Lymph # (Auto) [place] # (Auto) Eos # (Auto) Baso # (Auto) PT INR APTT pO2 VBG pH VBG pCO2 VBG HCO3 VBG Total CO2 VBG O2 Sat (Calc) VBG Base Excess VBG Potassium Glucose Lactate FiO2 Crit Value Called To Crit Value Called By Crit Value Read Back Blood Gas Notified Time Sodium Potassium Chloride Carbon Dioxide Anion Gap BUN Creatinine Est GFR ( Amer) Est GFR (Non-Af Amer) POC Glucose (mg/dL) 330 H Random Glucose Serum Osmolality Calcium Phosphorus Magnesium Total Bilirubin AST ALT Alkaline Phosphatase Total Creatine Kinase Troponin I Total Protein Albumin Globulin Albumin/Globulin Ratio Venous Blood Potassium Urine Color Urine Clarity Urine pH Ur Specific [place] Urine Protein Urine Glucose (UA) Urine Ketones Urine Blood Urine Nitrate Urine Bilirubin Urine Urobilinogen Ur Leukocyte Esterase Urine RBC (Auto) Urine WBC Clumps (Auto) Urine Microscopic WBC Ur Squamous Epith Cells Urine Bacteria Assessment & Plan - Assessment and Plan (Free Text) Assessment: FALL WITH LEFT HIP FRACTURE DIABETES MELLITUS Plan: IV FLUIDS, IV ANTIBIOTICS, ACCUCHECKS WITH INSULIN NEEDED THE PATIENT IS CLEARED FOR LEFT HIP SURGERY AFTER THE BLOOD GLUCOSE LEVELS AND UTI ARE TREATED LIPID PROFILE AND TSH ORDERED
[2018-05-23 20:51] LABS: BLOOD UREA NITROGEN 22 mg/dl (7-17); CALCIUM 8.7 mg/dL (8.4-10.2); GFR NON-AFRICAN AMERICAN 59
--- NOTE | 2018-05-23 21:45 | CARD ---
APPROVED REPORT Date of service: 05/23/2018 EXAM: Two-dimensional and M-mode echocardiogram with Doppler and color Doppler. Other Information Quality : FairRhythm : NSR INDICATION Pre-Op 2D DIMENSIONS IVSd1.07 (0.7-1.1cm)LVDd1.00 (3.9-5.9cm) LVOT Diameter1.57 (1.8-2.4cm)PWd1.24 (0.7-1.1cm) IVSs1.10 (0.8-1.2cm)LVDs2.64 (2.5-4.0cm) FS (%) 14.5 %PWs1.38 (0.8-1.2cm) M-Mode DIMENSIONS Left Atrium (MM)3.61 (2.5-4.0cm)IVSd1.00 (0.7-1.1cm) Aortic Root3.01 (2.2-3.7cm)LVDd4.72 (4.0-5.6cm) Aortic Cusp Exc.1.82 (1.5-2.0cm)PWd0.97 (0.7-1.1cm) IVSs1.38 cmFS (%) 32 % LVDs3.20 (2.0-3.8cm)PWs1.52 cm Aortic Valve AoV Peak Yofekulk274.1cm/sAoV VTI32.4cmAO Peak GR.9mmHg LVOT Peak Igiesbud10.6cm/sLVOT VTI20.54cmAO Mean GR.5mmHg Mitral Valve MV E [place]02.8cm/sMV DECEL [id number] A Fpigdwga567.1cm/s MV TEP67pzV/A ratio0.6MVA (PHT)2.25cm2 TDI Lateral E' Peak V7.33cm/sMedial E' Peak V4.24cm/sE/Lateral E'8.8 E/Medial E'15.3 Pulmonary Valve PV Peak Tvrilxpe925.1cm/s LEFT VENTRICLE The left ventricle is normal size. There is normal left ventricular wall thickness. The left ventricular systolic function is normal. The estimated ejection fraction is 55% No regional wall motion abnormalities noted.. Transmitral Doppler flow pattern is Grade I-abnormal relaxation pattern. No left ventricle thrombus noted on this study. There is no ventricular septal defect visualized. There is no mass noted in the left ventricle. RIGHT VENTRICLE The right ventricle is normal size. There is normal right ventricular wall thickness. The right ventricular systolic function is normal. ATRIA The left atrium size is normal. The right atrium size is normal. The interatrial septum is intact with no evidence for an atrial septal defect. AORTIC VALVE The aortic valve is normal in structure. Mild calcification No aortic regurgitation is present. There is no aortic valvular stenosis. MITRAL VALVE The mitral valve is normal in structure. Mitral annular calcification is mild. There is no mitral valve stenosis. There is no mitral valve regurgitation noted. TRICUSPID VALVE The tricuspid valve is normal in structure. There is no tricuspid valve regurgitation noted. PULMONIC VALVE The pulmonary valve is normal in structure. There is no pulmonic valvular regurgitation. GREAT VESSELS The aortic root is normal in size. The ascending aorta is normal in size. The pulmonary artery is normal. The IVC is normal in size and collapses >50% with inspiration. PERICARDIAL EFFUSION There is no pericardial effusion. <Conclusion> Normal LV systolic function with doppler hemodynamics consistent with abnormal relaxation Otherwise essentially normal transthoracic echocardiogram. The estimated ejection fraction is 55%
[2018-05-23 21:46] LABS: T3 0.735 nmol/L (1.49-2.60)
[2018-05-23 21:56] LABS: T4 5.91 ug/dl (5.5-11.0)
[2018-05-23] MEDS: Insulin Detemir 100 Units/ml Inj SC SCH (22:08)
[2018-05-24] MEDS: Insulin Regular 100 units/ml SC SCH ×4 (06:45→21:36)
[2018-05-24 07:09] LABS: HEMOGLOBIN 9.4 g/dL (12.0-16.0); MEAN CELL VOLUME 92.7 fl (81.0-99.0); MEAN CORPUSCULAR HEMOGLOBIN 31.9 pg (27.0-31.0); MEAN CORPUSCULAR HGB CONC 34.4 g/dL (33.0-37.0); RBC 2.93 Mil/uL (3.80-5.20); RED CELL DISTRIBUTION WIDTH 13.2 % (11.5-14.5)
[2018-05-24 07:11] LABS: HDL CHOLESTEROL 28 MG/DL (30-70)
[2018-05-24 07:22] LABS: LDL CHOLESTEROL 55 mg/dL (0-129)
[2018-05-24 07:33] LABS: BLOOD UREA NITROGEN 18 mg/dl (7-17); GFR NON-AFRICAN AMERICAN 59
--- NOTE | 2018-05-24 08:56 | CP.PCM.PN ---
Subjective - Date & Time of Evaluation Date of Evaluation: 05/24/18 Time of Evaluation: 08:56 - Subjective Subjective: Patient seen and examined at bedside. She is accompanied by her daughter. Patient at baseline is only oriented to herself but does not have coherent sentences. Nurse reports that the patient ate her breakfast. Patient has a Shannon in place and yielding yellow urine, output recorded- 400mL. Unable to obtain ROS given patient's baseline mental status. Objective - Vital Signs/Intake and Output Vital Signs (last 24 hours): Temp Pulse Resp BP Pulse Ox 98.9 F 73 20 165/73 H 96 05/24/18 08:29 05/24/18 08:29 05/24/18 08:29 05/24/18 08:29 05/24/18 08:29 Intake and Output: 05/24/18 05/24/18 06:59 18:59 Intake Total 520 Output Total 400 Balance 120 - Medications Medications: Current Medications Albuterol/Ipratropium (Duoneb 3 Mg/0.5 Mg (3 Ml) Ud) 3 ml INH RQ6 PRN PRN Reason: Shortness of Breath Last Admin: 05/23/18 03:23 Dose: 3 ml Docusate Sodium (Colace) 100 mg PO BID [facility] Ferrous Sulfate (Feosol) 325 mg PO BID [facility] Cefazolin Sodium 1 gm/ Sodium (Chloride) 100 mls @ 100 mls/hr IVPB Q12 [facility] PRN Reason: Protocol Last Admin: 05/23/18 21:57 Dose: 100 mls/hr Insulin Detemir (Levemir) 10 units SC HS [facility] Last Admin: 05/23/18 22:08 Dose: 10 u Insulin Human Regular (Humulin R) 0 units SC ACHS [facility] PRN Reason: Protocol Last Admin: 05/24/18 06:45 Dose: Not Given Morphine Sulfate (Morphine) 2 mg IVP Q4 PRN PRN Reason: Pain, severe (8-10) Last Admin: 05/24/18 03:26 Dose: 2 mg Morphine Sulfate (Morphine) 1 mg IVP Q4 PRN PRN Reason: Pain, moderate (4-7) Last Admin: 05/23/18 08:49 Dose: 1 mg - Labs Labs: 05/24/18 05:20 05/24/18 05:20 PT 11.7 Seconds (9.8-13.1) 05/22/18 23:17 INR 1.1 05/22/18 23:17 APTT 31.2 Seconds (25.6-37.1) 05/22/18 23:17 - Constitutional Appears: Well, Non-toxic, No Acute Distress - ENT Exam ENT Exam: Mucous Membranes Moist - Respiratory Exam Respiratory Exam: Clear to Ausculation Bilateral, NORMAL BREATHING PATTERN. absent: Decreased Breath Sounds, Prolonged Expiratory Phase, Rales, Rhonchi, Wheezes, Respiratory Distress - Cardiovascular Exam Cardiovascular Exam: REGULAR RHYTHM, RRR, +S1, +S2. absent: Tachycardia, Clicks , Diastolic murmur, Gallop, JVD, Rubs, +S4, Murmur - GI/Abdominal Exam GI & Abdominal Exam: Soft, Normal Bowel Sounds. absent: Distended, Firm, Guarding, Rigid, Tenderness, Organomegaly, Rebound - Exam Additional comments: Shannon in place. - Extremities Exam Extremities Exam: Normal Inspection. absent: Pedal Edema Additional comments: [place] traction in place on left leg. +2 dorsalis pedis bilaterally. - Neurological Exam Neurological Exam: Awake (Oriented to herself. ) - Psychiatric Exam Psychiatric exam: Normal Affect - Skin Skin Exam: Dry, Intact, Normal Color, Warm Assessment and Plan - Assessment and Plan (Free Text) Assessment: 87 years old female with hx of Asthma, DM II and Hypothyroidism, not using her walker at home tonight, lost her balance and fell. Found to have Left Intertrochanteric hip Fracture possible ORIF with Dr. Carmichael once patient is medically stable. Plan: 1. Left Intertrochanteric hip Fracture - Orthopedic recommendation appreciated, Dr Carmichael- OR for ORIF once patient is medically stable. - Pain Management - on Heart Healthy diet. Will be placed on NPO once medically stable and confirmed surgery date. - Cardiac Clearance by Dr Ruvalcaba appreciated: Patient is cleared for left hip surgery after glucose levels and UTI are appropriately treated. 2. DM II with hyperglycemia - IV fluids 1 liter in ED . Continue iwth NS at 150Mls/hr - Regular insulin Sliding scale according to accucheck Q2H and change to Q6 when Glucose is less than 200mg/dl - Levemir - Hold Metformin/Januvia/Glipizide - HbA1c 05/23/18 : 12 3. Hyperkalemia most likely secondary to the hyperglycemia - Potassium 05/24/18 - 4.8. - Continue to follow electrolytes 4. UTI - Cefazolin 1gm Q12 day 2. - F/U Urine culture - Blood culture negative to date. 5. Hypothyroidism: - TSH: 0.26 T3: 0.735 T4: 5.91 - Endocrinology consult appreciated. 6. Dilutional Anemia - Start Ferrous sulfate 325mg po BID - Start colace 100mg po BID - Continue to follow CBC. 7. Dehydration - IV fluids - follow Renal labs 8. Neutrophilic Leukocytosis reactive - Follow WBC 9. DVT prophylaxis with SCD Start Anticoagulant after surgery
--- NOTE | 2018-05-24 11:42 | CP.PCM.PN ---
Subjective - Date & Time of Evaluation Date of Evaluation: 05/24/18 Time of Evaluation: 11:15 - Subjective Subjective: S- pt comfortable at bedrest Objective - Vital Signs/Intake and Output Vital Signs (last 24 hours): Temp Pulse Resp BP Pulse Ox 98.9 F 73 20 165/73 H 96 05/24/18 08:29 05/24/18 08:29 05/24/18 08:29 05/24/18 08:29 05/24/18 08:29 Intake and Output: 05/24/18 05/24/18 06:59 18:59 Intake Total 520 Output Total 400 Balance 120 - Medications Medications: Current Medications Albuterol/Ipratropium (Duoneb 3 Mg/0.5 Mg (3 Ml) Ud) 3 ml INH RQ6 PRN PRN Reason: Shortness of Breath Last Admin: 05/23/18 03:23 Dose: 3 ml Docusate Sodium (Colace) 100 mg PO BID [facility] Last Admin: 05/24/18 10:40 Dose: 100 mg Ferrous Sulfate (Feosol) 325 mg PO BID [facility] Last Admin: 05/24/18 10:39 Dose: 325 mg Cefazolin Sodium 1 gm/ Sodium (Chloride) 100 mls @ 100 mls/hr IVPB Q12 [facility] PRN Reason: Protocol Last Admin: 05/23/18 21:57 Dose: 100 mls/hr Insulin Detemir (Levemir) 10 units SC HS [facility] Last Admin: 05/23/18 22:08 Dose: 10 u Insulin Human Regular (Humulin R) 0 units SC ACHS [facility] PRN Reason: Protocol Last Admin: 05/24/18 06:45 Dose: Not Given Morphine Sulfate (Morphine) 2 mg IVP Q4 PRN PRN Reason: Pain, severe (8-10) Last Admin: 05/24/18 03:26 Dose: 2 mg Morphine Sulfate (Morphine) 1 mg IVP Q4 PRN PRN Reason: Pain, moderate (4-7) Last Admin: 05/24/18 10:46 Dose: 1 mg - Labs Labs: 05/24/18 05:20 05/24/18 05:20 PT 11.7 Seconds (9.8-13.1) 05/22/18 23:17 INR 1.1 05/22/18 23:17 APTT 31.2 Seconds (25.6-37.1) 05/22/18 23:17 - Additional Findings Additional findings: physical exam systemic- unchanged Musculoskekltal stance/gait- defrred L lower ext immobilized in [place] tx N/ V intact Assessment and Plan - Assessment and Plan (Free Text) Assessment: A- pathologic displaced L intertochanteric femur fx P- To OR for ORIF pros/cons risks and befitis discussed with pt and her son No promises guarantees!!
[2018-05-24] MEDS: Sodium Chloride 0.9% 1,000 ML IV SCH (13:21)
[2018-05-24] MEDS: ceFAZolin 1 GM in Sodium Chloride 0.9% 100 ML IVPB SCH ×2 (13:22→20:53)
--- NOTE | 2018-05-24 21:09 | CON ---
DATE: 05/24/2018 HISTORY OF PRESENT ILLNESS: This is an 87-year-old female with known history of type 2 diabetes on oral hypoglycemic therapy given in combination and presenting here with sudden accidental fall and sustained a left hip fracture and is scheduled for ORIF tomorrow morning. She is being referred now for evaluation of abnormal thyroid function studies. PAST MEDICAL HISTORY: As mentioned above, history of type 2 diabetes on a combination of Januvia given as 100 mg daily with metformin as 500 mg b.i.d. and glipizide as 10 mg b.i.d., history of hypertension and dyslipidemia,history of chronic bronchial asthma, also significant history of hypothyroidism on levothyroxine replacement therapy, the exact dosing is not known . FAMILY HISTORY: Positive for hypertension and diabetes. SOCIAL HISTORY: The patient has supportive family. No known substance use. REVIEW OF SYSTEMS: As mentioned above, admits to generalized body weakness with easy fatigability and tiredness and suboptimal energy level. Also admits to episodic dizziness and lightheadedness, worse on the day of admission. No chest pains or palpitations, but admits to occasional shortness of breath especially on exertion. She ambulates with a cane, but at this time did not use her cane and sustained a accidental fall as noted. PHYSICAL EXAMINATION: HEART: Adynamic precordium. S1, S2 are rapid and regular. LUNGS: Clear to auscultation. ABDOMEN: Flat, soft with positive bowel sounds. EXTREMITIES: No peripheral edema. Pulses are +2 bilaterally. LABORATORY DATA: Her chemistries showed a BUN of 18, sodium 138, potassium 4.8, chloride 108, CO2 26, glucose 146 and creatinine 0.9. Her glucose levels are ranging from 144-173 and 222 mg/dL. Her initial glucose levels were extremely elevated from 410 to 593 mg/dL. Her latest thyroid studies showed T4 of 5.91 with a TSH of 0.26 and a total T4 of 5.91 with a total T3 of 0.735. ASSESSMENT: This is an 87-year-old female with known history of type 2 insulin-requiring diabetes on combination therapy but has not been on any basal insulin therapy prior to this admission, presenting here with an accidental fall and sustained a left hip fracture and is scheduled for open reduction and internal fixation tomorrow morning as given. She also has diabetic microvascular complications of retinopathy and macrovascular complications of coronary artery disease and peripheral arterial disease and vasculopathy. The patient remains clinically euthyroid but biochemically has evidence of a suppressed TSH and most likely related to over replacement of levothyroxine medications as given. She also has a possible superimposed acute sick euthyroid syndrome and because of the significant history of hypothyroidism, she may have the so-called over replacement of the levothyroxine medical therapy as given and this is the most likely etiology for the suppressed TSH although we have to exclude any underlying supervening thyroid-stimulating immunoglobulin causing subclinical hyperthyroidism. However, the most possible and likely etiology would just be over replacement of levothyroxine therapy as currently being given as noted. PLAN OF MANAGEMENT: We will continue the Levemir given as 10 units at bedtime daily with the insulin coverage scale as ordered. However, postoperatively with start her back on a triple oral hypoglycemic drug therapy as given. We will hold off the initiation of levothyroxine replacement therapy because if we are really dealing with over replacement then it takes 5-7 days for the therapeutic washout of the levothyroxine medications as previously given. We will continue the Levemir given at bedtime to optimize metabolic control of her diabetic condition with a correction scale using regular insulin as given at a high dose algorithm. However, postoperatively can switch her back to her oral hypoglycemic therapy given in combination and hopefully hold off basal insulin therapy as indicated. We will obtain serial chemistries and supplement accordingly as needed. We will follow. Dixie Zepeda MD
[2018-05-24] MEDS: Insulin Detemir 100 Units/ml Inj SC SCH (21:35)
[2018-05-25 06:01] LABS: HEMOGLOBIN 8.2 g/dL (12.0-16.0); MEAN CELL VOLUME 93.7 fl (81.0-99.0); MEAN CORPUSCULAR HEMOGLOBIN 32.3 pg (27.0-31.0); MEAN CORPUSCULAR HGB CONC 34.5 g/dL (33.0-37.0); RBC 2.54 Mil/uL (3.80-5.20)
[2018-05-25 06:11] LABS: BLOOD UREA NITROGEN 21 mg/dl (7-17); CALCIUM 8.4 mg/dL (8.4-10.2); GFR NON-AFRICAN AMERICAN 52
[2018-05-25] MEDS: Insulin Regular 100 units/ml SC SCH (06:45)
--- NOTE | 2018-05-25 07:51 | CP.PCM.PN ---
Subjective - Date & Time of Evaluation Date of Evaluation: 05/25/18 Time of Evaluation: 07:30 - Subjective Subjective: NO NEW COMPLAINTS Objective - Vital Signs/Intake and Output Vital Signs (last 24 hours): Temp Pulse Resp BP Pulse Ox 98.8 F 68 20 152/75 H 100 05/25/18 07:45 05/25/18 07:45 05/25/18 07:45 05/25/18 07:45 05/25/18 07:45 Intake and Output: 05/25/18 05/25/18 06:59 18:59 Intake Total 1200 Output Total 650 Balance 550 - Medications Medications: Current Medications Albuterol/Ipratropium (Duoneb 3 Mg/0.5 Mg (3 Ml) Ud) 3 ml INH RQ6 PRN PRN Reason: Shortness of Breath Last Admin: 05/23/18 03:23 Dose: 3 ml Docusate Sodium (Colace) 100 mg PO BID [facility] Last Admin: 05/24/18 17:33 Dose: 100 mg Ferrous Sulfate (Feosol) 325 mg PO BID [facility] Last Admin: 05/24/18 17:32 Dose: 325 mg Cefazolin Sodium 1 gm/ Sodium (Chloride) 100 mls @ 100 mls/hr IVPB Q12 [facility] PRN Reason: Protocol Last Admin: 05/24/18 20:53 Dose: 100 mls/hr Sodium Chloride (Sodium Chloride 0.9%) 1,000 mls @ 100 mls/hr IV .Q10H [facility] Stop: 05/25/18 11:46 Last Admin: 05/24/18 13:21 Dose: 100 mls/hr Insulin Detemir (Levemir) 10 units SC HS [facility] Last Admin: 05/24/18 21:35 Dose: 10 u Insulin Human Regular (Humulin R) 0 units SC ACHS [facility] PRN Reason: Protocol Last Admin: 05/25/18 06:45 Dose: Not Given Morphine Sulfate (Morphine) 2 mg IVP Q4 PRN PRN Reason: Pain, severe (8-10) Last Admin: 05/24/18 03:26 Dose: 2 mg Morphine Sulfate (Morphine) 1 mg IVP Q4 PRN PRN Reason: Pain, moderate (4-7) Last Admin: 05/25/18 05:37 Dose: 1 mg - Labs Labs: 05/25/18 04:20 05/25/18 04:20 PT 11.7 Seconds (9.8-13.1) 05/22/18 23:17 INR 1.1 05/22/18 23:17 APTT 31.2 Seconds (25.6-37.1) 05/22/18 23:17 - Respiratory Exam Respiratory Exam: Clear to Ausculation Bilateral - Cardiovascular Exam Cardiovascular Exam: REGULAR RHYTHM, +S1, +S2 Assessment and Plan - Assessment and Plan (Free Text) Assessment: LEFT HIP FRACTURE Plan: FOR SURGERY TODAY
[2018-05-25] MEDS ORDERED: Insulin Detemir 100 Units/ml Inj SC SCH (08:45)
[2018-05-25] MEDS: Sodium Chloride 0.9% 1,000 ML IV SCH (08:49)
--- NOTE | 2018-05-25 09:30 | CP.PCM.PN ---
Subjective - Date & Time of Evaluation Date of Evaluation: 05/25/18 Time of Evaluation: 09:30 - Subjective Subjective: Patient seen and examined at bedside. She is at her baseline, which is confused. She is accompanied by her daughter. Daughter reports no changes. Only concern was when surgery was going to be performed. Overnight: patient had overnight temperature of 102.2 F which is now resolved. Objective - Vital Signs/Intake and Output Vital Signs (last 24 hours): Temp Pulse Resp BP Pulse Ox 98.8 F 68 20 152/75 H 100 05/25/18 07:45 05/25/18 07:45 05/25/18 07:45 05/25/18 07:45 05/25/18 07:45 Intake and Output: 05/25/18 05/25/18 06:59 18:59 Intake Total 1200 Output Total 650 Balance 550 - Medications Medications: Current Medications Albuterol/Ipratropium (Duoneb 3 Mg/0.5 Mg (3 Ml) Ud) 3 ml INH RQ6 PRN PRN Reason: Shortness of Breath Last Admin: 05/23/18 03:23 Dose: 3 ml Docusate Sodium (Colace) 100 mg PO BID [facility] Last Admin: 05/25/18 08:42 Dose: Not Given Ferrous Sulfate (Feosol) 325 mg PO BID [facility] Last Admin: 05/25/18 08:42 Dose: Not Given Sodium Chloride (Sodium Chloride 0.9%) 1,000 mls @ 100 mls/hr IV .Q10H [facility] Stop: 05/25/18 11:46 Last Admin: 05/25/18 08:49 Dose: 100 mls/hr Ceftriaxone Sodium 1 gm/ (Sodium Chloride) 100 mls @ 100 mls/hr IVPB DAILY [facility] PRN Reason: Protocol Insulin Detemir (Levemir) 15 units SC HS N[facility] Insulin Human Regular (Humulin R) 0 units SC ACHS [facility] PRN Reason: Protocol Last Admin: 05/25/18 06:45 Dose: Not Given Morphine Sulfate (Morphine) 2 mg IVP Q4 PRN PRN Reason: Pain, severe (8-10) Last Admin: 05/24/18 03:26 Dose: 2 mg Morphine Sulfate (Morphine) 1 mg IVP Q4 PRN PRN Reason: Pain, moderate (4-7) Last Admin: 05/25/18 05:37 Dose: 1 mg - Labs Labs: 05/25/18 04:20 05/25/18 04:20 PT 11.7 Seconds (9.8-13.1) 05/22/18 23:17 INR 1.1 05/22/18 23:17 APTT 31.2 Seconds (25.6-37.1) 05/22/18 23:17 - Constitutional Appears: Well, Non-toxic, No Acute Distress - ENT Exam ENT Exam: Mucous Membranes Moist - Respiratory Exam Respiratory Exam: Decreased Breath Sounds, Clear to Ausculation Bilateral. absent: Rales, Rhonchi, Wheezes, Respiratory Distress - Cardiovascular Exam Cardiovascular Exam: RRR, +S1, +S2, Murmur. absent: Gallop, Rubs - GI/Abdominal Exam GI & Abdominal Exam: Soft, Normal Bowel Sounds. absent: Distended (Obese abdomen.), Firm, Guarding, Tenderness, Organomegaly, Rebound - Extremities Exam Extremities Exam: Normal Inspection, Pedal Edema Additional comments: left leg bucks traction 10 lbs. - Neurological Exam Neurological Exam: Awake (confused- baseline. ) - Skin Skin Exam: Dry, Intact, Normal Color, Warm Assessment and Plan - Assessment and Plan (Free Text) Assessment: 87 years old female with hx of Asthma, DM II and Hypothyroidism, not using her walker at home tonight, lost her balance and fell. Found to have Left Intertrochanteric hip Fracture possible ORIF with Dr. Carmichael today 05/25. Plan: 1. Left Intertrochanteric hip Fracture - Orthopedic recommendation appreciated, Dr Carmichael- OR for ORIF possibly today 05/25 - Pain Management - NPO - Cardiac Clearance by Dr Ruvalcaba appreciated: Patient is cleared for left hip surgery after glucose levels and UTI are appropriately treated. 2. DM II with hyperglycemia - IV hydration with NS at 100Mls/hr - Regular insulin Sliding scale according to accucheck Q2H and change to Q6 when Glucose is less than 200mg/dl - Levemir increased from 10 Uto 24 U HS - Levemir 20 U given once due to Glucose level of 296. - Hold Metformin/Januvia/Glipizide - HbA1c 05/23/18 : 12 3. Hyperkalemia most likely secondary to the hyperglycemia - Potassium 05/24/18 - 4.6. - Continue to follow electrolytes 4. UTI - Urine culture positive for E.coli sensitive to Ceftriaxone. - Cefazolin changed to Ceftriaxone 1gm IV daily. - Blood culture negative to date. 5. Hypothyroidism: - TSH: 0.26 T3: 0.735 T4: 5.91 - Endocrinology consult appreciated, Dr. Zepeda: patient can be swiched to PO medications post-operatively. 6. Anemia - CBC 05/25/18 : 10 > 8.2 / 23.8 < 134. - 4 Units of pRBC ordered. - 2 U of pRBC to be transfused prior to surgery. - Continue Ferrous sulfate 325mg po BID - Continue colace 100mg po BID - Continue to follow CBC. 7. Dehydration - Continue IV fluids NS @ 100/hr. - follow Renal labs 8. Neutrophilic Leukocytosis reactive - Resolved. 9. DVT prophylaxis with SCD Start Anticoagulant after surgery
[2018-05-25] MEDS ORDERED: Insulin Detemir 100 Units/ml Inj SC ONE (09:45)
[2018-05-25] MEDS ORDERED: Bacitracin Ointment 30 GM TUBE ONE (12:27)
[2018-05-25] MEDS ORDERED: Absorbable Gelatin Sponge Size 12-7 ONE (12:27)
[2018-05-25] MEDS: Insulin Lispro (humaLOG) 100 Units/ml Inj SC SCH ×2 (12:27→21:46)
[2018-05-25] MEDS ORDERED: Thrombin Topical 5,000 Int Units Spray Kit ONE (12:28)
[2018-05-25] MEDS ORDERED: EPINEPHrine 1 mg/ml (1:1000) Inj ONE (13:06)
[2018-05-25] MEDS ORDERED: Succinylcholine 200 mg/10 ml Inj IV ONE (13:13)
[2018-05-25] MEDS ORDERED: Etomidate 20 mg/10ml Inj IV ONE (13:13)
[2018-05-25] MEDS ORDERED: Propofol 10 mg/ml Inj (20 ML) ONE (13:15)
[2018-05-25] MEDS ORDERED: Lactated Ringer's 1,000 ML IV ONE (13:16)
[2018-05-25] MEDS ORDERED: Sodium Chloride 0.9% 1,000 ML IV ONE (13:17)
[2018-05-25] MEDS ORDERED: Rocuronium 10 mg/ml (5 ml) ONE (13:17)
--- NOTE | 2018-05-25 15:33 | PN ---
DATE: 05/25/2018 ENDO FOLLOWUP NOTE LOCATION: In room 407. SUBJECTIVE: This is an 87-year-old female with recent uncontrolled type 2 insulin-requiring diabetes, presenting here with an accidental fall and sustaining a left hip fracture and is now being scheduled today for open reduction and internal fixation procedure as noted. She was actually initially consulted for the abnormal thyroid function studies and currently referred to the previous consult for evaluation and recommendations. Her glycemic levels; however, are fluctuating as noted overnight with glucose values ranging from 291 to 334 mg/dL. LABORATORY DATA: Today's chemistry showed a BUN of 21, sodium 136, potassium 4.6, chloride 107, CO2 of 27, glucose 296, and creatinine 1. ASSESSMENT AND PLAN: So at this time, we will modify her current coverage scale and actually modify the coverage scale and detailed orders have been given with Humalog insulin as ordered. We will give her a stat dose of Levemir at 20 units subcutaneously this morning as ordered and given. We will also change her intravenous hydration to D5 and half-normal saline at 100 mL per hour because she has just been kept n.p.o. for the procedure. However, she is scheduled to receive blood transfusion this morning because of the drop of the hemoglobin to 8.2 g as noted. We will obtain serial chemistries and supplement accordingly as needed. We will also resume her oral hypoglycemic therapy postoperatively as indicated. We will follow. Dixie Zepeda MD
--- NOTE | 2018-05-25 15:50 | PCM.SURG1 ---
Surgeon's Initial Post Op Note - Surgeon's Notes Surgeon: Jany National Secretary: JUANITA Mora Type of Anesthesia: General Endo Anesthesia Administered By: DR Ziggy HEREDIA Pre-Operative Diagnosis: displaced/comminuted pathologic L intertrochanteric femur fx Operative Findings: as above- displaced/comminuted intertrochanteric L femur fx Post-Operative Diagnosis: as above Operation Performed: ORIF L intertrochanteric L femur fx- with interlocking inmtramedullary nail. autograft/allograft bone graft. release iliopsoas tendon. positioning of fluoro/interpretation of video images Specimen/Specimens Removed: callous/bone/tendon Estimated Blood Loss: EBL {In ML}: 300 (pt received 3 units prb/s) Blood Products Given: FFP Drains Used: No Drains Post-Op Condition: Fair Date of Surgery/Procedure: 05/25/18 Time of Surgery/Procedure: 14:25 (time ni room/anaesthesia indcution time 1316)
[2018-05-25] MEDS ORDERED: Neostigmine 1:1000 (1 mg/ml) Inj ONE (15:58)
[2018-05-25] MEDS ORDERED: oxyCODONE 10 mg Immediate Release Tab PO PRN (16:20)
[2018-05-25] MEDS ORDERED: Lactated Ringer's 1,000 ML IV SCH (16:30)
[2018-05-25] MEDS ORDERED: Sodium Chloride 0.9% 1,000 ML IV SCH (16:30)
--- NOTE | 2018-05-25 16:53 | RAD ---
PROCEDURE: Left Hip X-ray Radiographs. HISTORY: s/p L Hip ORIF COMPARISON: Left hip CT and radiographs dated 05/23/2018 FINDINGS: BONES: Interval open reduction intramedullary shmuel and screw fixation of the previously described left intertrochanteric hip fracture. Osseous components seen in slightly improved anatomic alignment. JOINTS: Normal. SOFT TISSUES: Postsurgical changes with superficial skin ange. OTHER FINDINGS: None. IMPRESSION: Interval ORIF comminuted left hip intratrochanteric fracture.
[2018-05-25] MEDS: Insulin Detemir 100 Units/ml Inj SC SCH (21:48)
--- NOTE | 2018-05-25 22:50 | CP.PCM.PN ---
Subjective - Date & Time of Evaluation Date of Evaluation: 05/25/18 Time of Evaluation: 22:47 - Subjective Subjective: ID NOTE WAS NOT INFORMED OF CONSULT SURGERY TODAY AWAIT CONSULTS FROM SURGERY CONTINUE ANCEF FOR UTI THAT WAS TAKN PRE OP Objective - Vital Signs/Intake and Output Vital Signs (last 24 hours): Temp Pulse Resp BP Pulse Ox 98.8 F 79 20 171/73 H 97 05/25/18 20:13 05/25/18 20:13 05/25/18 20:13 05/25/18 20:13 05/25/18 20:13 Intake and Output: 05/25/18 05/26/18 18:59 06:59 Intake Total 1650 200 Output Total 450 Balance 1200 200 - Medications Medications: Current Medications Acetaminophen (Tylenol 325mg Tab) 975 mg PO Q8 [facility] Albuterol/Ipratropium (Duoneb 3 Mg/0.5 Mg (3 Ml) Ud) 3 ml INH RQ6 PRN PRN Reason: Shortness of Breath Last Admin: 05/23/18 03:23 Dose: 3 ml Docusate Sodium (Colace) 100 mg PO BID [facility] Last Admin: 05/25/18 21:37 Dose: 100 mg Enoxaparin Sodium (Lovenox) 30 mg SC DAILY [facility] PRN Reason: Protocol Ferrous Sulfate (Feosol) 325 mg PO BID [facility] Last Admin: 05/25/18 21:39 Dose: 325 mg Folic Acid (Folic Acid) 1 mg PO DAILY [facility] Hydrochlorothiazide (Hydrodiuril) 25 mg PO DAILY [facility] Last Admin: 05/25/18 21:40 Dose: 25 mg Ceftriaxone Sodium 1 gm/ (Sodium Chloride) 100 mls @ 100 mls/hr IVPB DAILY [facility] PRN Reason: Protocol Last Admin: 05/25/18 09:56 Dose: 100 mls/hr Lactated Ringer's (Lactated Ringer's) 1,000 mls @ 75 mls/hr IV .[id number] [facility] Cefazolin Sodium/Dextrose (Ancef Iv 2 Gm Duplex) 2 gm in 50 mls @ 50 mls/hr IVPB Q8 [facility] PRN Reason: Protocol Sodium Chloride (Sodium Chloride 0.9%) 1,000 mls @ 75 mls/hr IV .[id number] [facility] Stop: 05/26/18 16:21 Insulin Detemir (Levemir) 24 units SC [facility] Last Admin: 05/25/18 21:48 Dose: 24 u Insulin Human Lispro (Humalog) 0 units SC [facility] Last Admin: 05/25/18 21:46 Dose: Not Given Morphine Sulfate (Morphine) 2 mg IVP Q4 PRN PRN Reason: Pain, severe (8-10) Last Admin: 05/24/18 03:26 Dose: 2 mg Morphine Sulfate (Morphine) 1 mg IVP Q4 PRN PRN Reason: Pain, moderate (4-7) Last Admin: 05/25/18 05:37 Dose: 1 mg Ondansetron HCl (Zofran Inj) 4 mg IVP ONCE PRN PRN Reason: Nausea/Vomiting Oxycodone HCl (Oxycodone Immediate Release Tab) 10 mg PO Q6 PRN PRN Reason: Pain, moderate (4-7) - Labs Labs: 05/25/18 04:20 05/25/18 04:20 PT 11.7 Seconds (9.8-13.1) 05/22/18 23:17 INR 1.1 05/22/18 23:17 APTT 31.2 Seconds (25.6-37.1) 05/22/18 23:17
[2018-05-25] MEDS: Albuterol-Ipratrop 3 mg / 0.5 (3 ml) UD INH PRN (22:56)
[2018-05-26] MEDS: ceFAZolin IV 2 gm in Dextrose 2 GM/50 ML BAG IVPB SCH ×2 (00:08→09:49)
[2018-05-26 06:55] LABS: HEMOGLOBIN 10.8 g/dL (12.0-16.0); MEAN CELL VOLUME 92.7 fl (81.0-99.0); MEAN CORPUSCULAR HEMOGLOBIN 32.1 pg (27.0-31.0); MEAN CORPUSCULAR HGB CONC 34.7 g/dL (33.0-37.0); RBC 3.37 Mil/uL (3.80-5.20); RED CELL DISTRIBUTION WIDTH 13.4 % (11.5-14.5); WHITE BLOOD COUNT 13.3 K/uL (4.8-10.8)
[2018-05-26] MEDS: Insulin Lispro (humaLOG) 100 Units/ml Inj SC SCH ×4 (06:59→22:45)
[2018-05-26 07:29] LABS: BLOOD UREA NITROGEN 18 mg/dl (7-17); GFR NON-AFRICAN AMERICAN 59
--- NOTE | 2018-05-26 08:55 | CP.PCM.PN ---
Subjective - Date & Time of Evaluation Date of Evaluation: 05/26/18 Time of Evaluation: 08:15 - Subjective Subjective: NO CHEST PAIN OR SOB Objective - Vital Signs/Intake and Output Vital Signs (last 24 hours): Temp Pulse Resp BP Pulse Ox 98.5 F 77 18 107/65 97 05/26/18 05:00 05/26/18 05:00 05/26/18 05:00 05/26/18 05:00 05/26/18 05:00 Intake and Output: 05/26/18 05/26/18 06:59 18:59 Intake Total 200 Balance 200 - Medications Medications: Current Medications Acetaminophen (Tylenol 325mg Tab) 975 mg PO Q8 [facility] Last Admin: 05/26/18 00:15 Dose: 975 mg Albuterol/Ipratropium (Duoneb 3 Mg/0.5 Mg (3 Ml) Ud) 3 ml INH RQ6 PRN PRN Reason: Shortness of Breath Last Admin: 05/25/18 22:56 Dose: 3 ml Docusate Sodium (Colace) 100 mg PO BID [facility] Last Admin: 05/25/18 21:37 Dose: 100 mg Enoxaparin Sodium (Lovenox) 30 mg SC DAILY [facility]; Protocol Ferrous Sulfate (Feosol) 325 mg PO BID [facility] Last Admin: 05/25/18 21:39 Dose: 325 mg Folic Acid (Folic Acid) 1 mg PO DAILY [facility] Hydrochlorothiazide (Hydrodiuril) 25 mg PO DAILY [facility] Last Admin: 05/25/18 21:40 Dose: 25 mg Ceftriaxone Sodium 1 gm/ (Sodium Chloride) 100 mls @ 100 mls/hr IVPB DAILY [facility]; Protocol Last Admin: 05/25/18 09:56 Dose: 100 mls/hr Lactated Ringer's (Lactated Ringer's) 1,000 mls @ 75 mls/hr IV .[id number] [facility] Cefazolin Sodium/Dextrose (Ancef Iv 2 Gm Duplex) 2 gm in 50 mls @ 50 mls/hr IVPB Q8 [facility]; Protocol Last Admin: 05/26/18 00:08 Dose: 50 mls/hr Sodium Chloride (Sodium Chloride 0.9%) 1,000 mls @ 75 mls/hr IV .[id number] [facility] Stop: 05/26/18 16:21 Last Admin: 05/26/18 06:00 Dose: 75 mls/hr Insulin Detemir (Levemir) 24 units SC HS [facility] Last Admin: 05/25/18 21:48 Dose: 24 u Insulin Human Lispro (Humalog) 0 units SC ACHS [facility] Last Admin: 05/26/18 06:59 Dose: Not Given Morphine Sulfate (Morphine) 2 mg IVP Q4 PRN PRN Reason: Pain, severe (8-10) Last Admin: 05/24/18 03:26 Dose: 2 mg Morphine Sulfate (Morphine) 1 mg IVP Q4 PRN PRN Reason: Pain, moderate (4-7) Last Admin: 05/26/18 00:01 Dose: 1 mg Ondansetron HCl (Zofran Inj) 4 mg IVP ONCE PRN PRN Reason: Nausea/Vomiting Oxycodone HCl (Oxycodone Immediate Release Tab) 10 mg PO Q6 PRN PRN Reason: Pain, moderate (4-7) Saccharomyces Boulardii (Florastor) 250 mg PO BID [facility] - Labs Labs: 05/26/18 04:20 05/26/18 04:20 PT 11.7 Seconds (9.8-13.1) 05/22/18 23:17 INR 1.1 05/22/18 23:17 APTT 31.2 Seconds (25.6-37.1) 05/22/18 23:17 - Respiratory Exam Respiratory Exam: Clear to Ausculation Bilateral - Cardiovascular Exam Cardiovascular Exam: REGULAR RHYTHM, +S1, +S2 - Extremities Exam Additional comments: LLE WRAPPED RLE WITHOUT EDEMA - Additional Findings Additional findings: OR NOTES SEEN WITH LEFT FEMUR FX NAILING Assessment and Plan - Assessment and Plan (Free Text) Assessment: SURGICAL REPAIR OF LEFT HIP FRACTURE HYPERTENSION DM Plan: CONTINUE HXTZ, INSULIN, LOVENOX AND PAIN MEDS
--- NOTE | 2018-05-26 09:51 | CP.PCM.PN ---
<Marcela Dee - Last Filed: 05/26/18 10:03> Subjective - Date & Time of Evaluation Date of Evaluation: 05/26/18 Time of Evaluation: 09:50 - Subjective Subjective: Patient seen and examined at bedside. No acute distress. She is resting comfortably in her hospital bed. Patient is confused at baseline as per daughter. ROS not able to be obtained due to baseline mental status. Objective - Vital Signs/Intake and Output Vital Signs (last 24 hours): Temp Pulse Resp BP Pulse Ox 98.5 F 77 18 107/65 97 05/26/18 05:00 05/26/18 05:00 05/26/18 05:00 05/26/18 05:00 05/26/18 05:00 Intake and Output: 05/26/18 05/26/18 06:59 18:59 Intake Total 200 Balance 200 - Medications Medications: Current Medications Acetaminophen (Tylenol 325mg Tab) 975 mg PO Q8 [facility] Last Admin: 05/26/18 00:15 Dose: 975 mg Albuterol/Ipratropium (Duoneb 3 Mg/0.5 Mg (3 Ml) Ud) 3 ml INH RQ6 PRN PRN Reason: Shortness of Breath Last Admin: 05/25/18 22:56 Dose: 3 ml Docusate Sodium (Colace) 100 mg PO BID [facility] Last Admin: 05/25/18 21:37 Dose: 100 mg Enoxaparin Sodium (Lovenox) 30 mg SC DAILY [facility]; Protocol Ferrous Sulfate (Feosol) 325 mg PO BID [facility] Last Admin: 05/25/18 21:39 Dose: 325 mg Folic Acid (Folic Acid) 1 mg PO DAILY [facility] Hydrochlorothiazide (Hydrodiuril) 25 mg PO DAILY [facility] Last Admin: 05/25/18 21:40 Dose: 25 mg Ceftriaxone Sodium 1 gm/ (Sodium Chloride) 100 mls @ 100 mls/hr IVPB DAILY [facility]; Protocol Last Admin: 05/25/18 09:56 Dose: 100 mls/hr Lactated Ringer's (Lactated Ringer's) 1,000 mls @ 75 mls/hr IV .[id number] [facility] Cefazolin Sodium/Dextrose (Ancef Iv 2 Gm Duplex) 2 gm in 50 mls @ 50 mls/hr IVPB Q8 [facility]; Protocol Last Admin: 05/26/18 00:08 Dose: 50 mls/hr Sodium Chloride (Sodium Chloride 0.9%) 1,000 mls @ 75 mls/hr IV .[id number] [facility] Stop: 05/26/18 16:21 Last Admin: 05/26/18 06:00 Dose: 75 mls/hr Insulin Detemir (Levemir) 24 units SC HS [facility] Last Admin: 05/25/18 21:48 Dose: 24 u Insulin Human Lispro (Humalog) 0 units SC ACHS [facility] Last Admin: 05/26/18 06:59 Dose: Not Given Morphine Sulfate (Morphine) 2 mg IVP Q4 PRN PRN Reason: Pain, severe (8-10) Last Admin: 05/24/18 03:26 Dose: 2 mg Morphine Sulfate (Morphine) 1 mg IVP Q4 PRN PRN Reason: Pain, moderate (4-7) Last Admin: 05/26/18 00:01 Dose: 1 mg Ondansetron HCl (Zofran Inj) 4 mg IVP ONCE PRN PRN Reason: Nausea/Vomiting Oxycodone HCl (Oxycodone Immediate Release Tab) 10 mg PO Q6 PRN PRN Reason: Pain, moderate (4-7) Saccharomyces Boulardii (Florastor) 250 mg PO BID [facility] - Labs Labs: 05/26/18 04:20 05/26/18 04:20 PT 11.7 Seconds (9.8-13.1) 05/22/18 23:17 INR 1.1 05/22/18 23:17 APTT 31.2 Seconds (25.6-37.1) 05/22/18 23:17 - Constitutional Appears: Well, Non-toxic, No Acute Distress - ENT Exam ENT Exam: Mucous Membranes Moist - Respiratory Exam Respiratory Exam: Clear to Ausculation Bilateral, NORMAL BREATHING PATTERN. absent: Rales, Rhonchi, Wheezes, Respiratory Distress, Stridor - Cardiovascular Exam Cardiovascular Exam: REGULAR RHYTHM, RRR, +S1, +S2. absent: Diastolic murmur, Gallop, JVD, Rubs, +S4, Murmur - GI/Abdominal Exam GI & Abdominal Exam: Distended (Obese abdomen), Soft, Normal Bowel Sounds. ab sent: Firm, Guarding, Tenderness, Pulsatile Mass, Rebound - Extremities Exam Additional comments: Marbin bandage wrap on left left present. - Back Exam Back Exam: NORMAL INSPECTION - Neurological Exam Neurological Exam: absent: Awake (Asleep. Patient is confused at baseline. ) - Skin Skin Exam: Dry, Intact, Normal Color, Warm Assessment and Plan - Assessment and Plan (Free Text) Assessment: 87 years old female with hx of Asthma, DM II and Hypothyroidism, not using her walker at home tonight, lost her balance and fell. Found to have Left Intertrochanteric hip Fracture s/p ORIF Left intertrochanteric L femur fracture, Dr. Carmichael, 05/25. Plan: 1. Left Intertrochanteric hip Fracture, S/P ORIF 05/25 - Patient received three units of pRBC during the procedure and FFP. - Pain Management - Cardiac Clearance by Dr Ruvalcaba appreciated: Patient is cleared for left hip surgery after glucose levels and UTI are appropriately treated. -H/H 05/26: 13 > 10.8 / 31.2 < 148 2. DM II with hyperglycemia - IV hydration with LR at 75 Mls/hr - Regular insulin Sliding scale according to accucheck Q2H and change to Q6 when Glucose is less than 200mg/dl - Continue Levemir 24 U HS - Continue to Hold Metformin/Januvia/Glipizide - HbA1c 05/23/18: 12 - F/U Vitamin D and BMP 3. Hyperkalemia most likely secondary to the hyperglycemia - Potassium 05/26/18 - 4.5. - Continue to follow electrolytes 4. UTI - Urine culture positive for E.coli sensitive to Ceftriaxone. - Ceftriaxone 1gm IV daily day 2 - Blood culture negative to date. 5. Hypothyroidism: - TSH: 0.26 T3: 0.735 T4: 5.91 - Endocrinology consult appreciated, Dr. Zepeda: patient can be switched to PO medications post-operatively. 6. Anemia - CBC 05/25/18 : 10 > 8.2 / 23.8 < 134. - 3 units of pRBC transfused yesterday during surgery. FFP was given. - Continue Ferrous sulfate 325mg po BID - Continue colace 100mg po BID - Continue to follow CBC. 7. Dehydration - Continue IV fluids LR @ 75/hr. - follow Renal labs 8. Neutrophilic Leukocytosis reactive - Resolved. 9. DVT prophylaxis with SCD Lovenox 30 mg daily <Snehal Mosqueda - Last Filed: 05/26/18 15:17> Objective - Vital Signs/Intake and Output Vital Signs (last 24 hours): Temp Pulse Resp BP Pulse Ox 99.5 F 65 20 132/71 96 05/26/18 13:00 05/26/18 13:00 05/26/18 13:00 05/26/18 13:00 05/26/18 13:00 Intake and Output: 05/26/18 05/26/18 06:59 18:59 Intake Total 200 Balance 200 - Medications Medications: Current Medications Acetaminophen (Tylenol 325mg Tab) 975 mg PO Q8 [facility] Last Admin: 05/26/18 10:17 Dose: 975 mg Albuterol/Ipratropium (Duoneb 3 Mg/0.5 Mg (3 Ml) Ud) 3 ml INH RQ6 PRN PRN Reason: Shortness of Breath Last Admin: 05/25/18 22:56 Dose: 3 ml Docusate Sodium (Colace) 100 mg PO BID [facility] Last Admin: 05/26/18 09:51 Dose: 100 mg Enoxaparin Sodium (Lovenox) 30 mg SC DAILY [facility]; Protocol Last Admin: 05/26/18 09:56 Dose: 30 mg Ferrous Sulfate (Feosol) 325 mg PO BID [facility] Last Admin: 05/26/18 09:51 Dose: 325 mg Folic Acid (Folic Acid) 1 mg PO DAILY [facility] Last Admin: 05/26/18 09:55 Dose: 1 mg Hydrochlorothiazide (Hydrodiuril) 25 mg PO DAILY [facility] Last Admin: 05/26/18 09:56 Dose: 25 mg Ceftriaxone Sodium 1 gm/ (Sodium Chloride) 100 mls @ 100 mls/hr IVPB DAILY [facility]; Protocol Last Admin: 05/26/18 09:57 Dose: 100 mls/hr Lactated Ringer's (Lactated Ringer's) 1,000 mls @ 75 mls/hr IV .[id number] [facility] Cefazolin Sodium/Dextrose (Ancef Iv 2 Gm Duplex) 2 gm in 50 mls @ 50 mls/hr IVPB Q8 [facility]; Protocol Last Admin: 05/26/18 09:49 Dose: 50 mls/hr Sodium Chloride (Sodium Chloride 0.9%) 1,000 mls @ 75 mls/hr IV .[id number] [facility] Stop: 05/26/18 16:21 Last Admin: 05/26/18 06:00 Dose: 75 mls/hr Insulin Detemir (Levemir) 24 units SC HS [facility] Last Admin: 05/25/18 21:48 Dose: 24 u Insulin Human Lispro (Humalog) 0 units SC ACHS [facility] Last Admin: 05/26/18 12:00 Dose: 4 units Morphine Sulfate (Morphine) 2 mg IVP Q4 PRN PRN Reason: Pain, severe (8-10) Last Admin: 05/24/18 03:26 Dose: 2 mg Morphine Sulfate (Morphine) 1 mg IVP Q4 PRN PRN Reason: Pain, moderate (4-7) Last Admin: 05/26/18 00:01 Dose: 1 mg Ondansetron HCl (Zofran Inj) 4 mg IVP ONCE PRN PRN Reason: Nausea/Vomiting Oxycodone HCl (Oxycodone Immediate Release Tab) 10 mg PO Q6 PRN PRN Reason: Pain, moderate (4-7) Saccharomyces Boulardii (Florastor) 250 mg PO BID [facility] Last Admin: 05/26/18 11:00 Dose: 250 mg - Labs Labs: 05/26/18 04:20 05/26/18 04:20 PT 11.7 Seconds (9.8-13.1) 05/22/18 23:17 INR 1.1 05/22/18 23:17 APTT 31.2 Seconds (25.6-37.1) 05/22/18 23:17 Attending/Attestation - Attestation I have personally seen and examined this patient.: Yes I have fully participated in the care of the patient.: Yes I have reviewed all pertinent clinical information, including history, physical exam and plan: Yes Notes (Text): Intertrochanteric Hip Fratucre , Left s/p ORIF - doing well post op ( Day 1) - PT/OT consulted -Pain controlled -Plan for d/c to [facility] in am Chronic Anemia and Acute Blood Loss Anemia - Pt has hx of Chronic anemia thus was transfused PRBC and FFP - H/H stable post op - cont Ferrous
[2018-05-26] MEDS: Enoxaparin 30 mg Syringe SC SCH (09:56)
[2018-05-26] MEDS: Saccharomyces Boulardi 250 mg Cap PO SCH ×2 (11:00→16:21)
--- NOTE | 2018-05-26 13:58 | CP.PCM.PN ---
Subjective - Date & Time of Evaluation Date of Evaluation: 05/26/18 Time of Evaluation: 07:30 - Subjective Subjective: Patient was seen and examined at bedside comfortable. Patient is confused and unable to follow commands due to dementia. No acute events overnight. Objective - Vital Signs/Intake and Output Vital Signs (last 24 hours): Temp Pulse Resp BP Pulse Ox 99.5 F 65 20 132/71 96 05/26/18 13:00 05/26/18 13:00 05/26/18 13:00 05/26/18 13:00 05/26/18 13:00 Intake and Output: 05/26/18 05/26/18 06:59 18:59 Intake Total 200 Balance 200 - Medications Medications: Current Medications Acetaminophen (Tylenol 325mg Tab) 975 mg PO Q8 [facility] Last Admin: 05/26/18 10:17 Dose: 975 mg Albuterol/Ipratropium (Duoneb 3 Mg/0.5 Mg (3 Ml) Ud) 3 ml INH RQ6 PRN PRN Reason: Shortness of Breath Last Admin: 05/25/18 22:56 Dose: 3 ml Docusate Sodium (Colace) 100 mg PO BID [facility] Last Admin: 05/26/18 09:51 Dose: 100 mg Enoxaparin Sodium (Lovenox) 30 mg SC DAILY [facility]; Protocol Last Admin: 05/26/18 09:56 Dose: 30 mg Ferrous Sulfate (Feosol) 325 mg PO BID [facility] Last Admin: 05/26/18 09:51 Dose: 325 mg Folic Acid (Folic Acid) 1 mg PO DAILY [facility] Last Admin: 05/26/18 09:55 Dose: 1 mg Hydrochlorothiazide (Hydrodiuril) 25 mg PO DAILY [facility] Last Admin: 05/26/18 09:56 Dose: 25 mg Ceftriaxone Sodium 1 gm/ (Sodium Chloride) 100 mls @ 100 mls/hr IVPB DAILY [facility]; Protocol Last Admin: 05/26/18 09:57 Dose: 100 mls/hr Lactated Ringer's (Lactated Ringer's) 1,000 mls @ 75 mls/hr IV .[id number] [facility] Cefazolin Sodium/Dextrose (Ancef Iv 2 Gm Duplex) 2 gm in 50 mls @ 50 mls/hr IVPB Q8 [facility]; Protocol Last Admin: 05/26/18 09:49 Dose: 50 mls/hr Sodium Chloride (Sodium Chloride 0.9%) 1,000 mls @ 75 mls/hr IV .[id number] [facility] Stop: 05/26/18 16:21 Last Admin: 05/26/18 06:00 Dose: 75 mls/hr Insulin Detemir (Levemir) 24 units SC HS [facility] Last Admin: 05/25/18 21:48 Dose: 24 u Insulin Human Lispro (Humalog) 0 units SC ACHS [facility] Last Admin: 05/26/18 12:00 Dose: 4 units Morphine Sulfate (Morphine) 2 mg IVP Q4 PRN PRN Reason: Pain, severe (8-10) Last Admin: 05/24/18 03:26 Dose: 2 mg Morphine Sulfate (Morphine) 1 mg IVP Q4 PRN PRN Reason: Pain, moderate (4-7) Last Admin: 05/26/18 00:01 Dose: 1 mg Ondansetron HCl (Zofran Inj) 4 mg IVP ONCE PRN PRN Reason: Nausea/Vomiting Oxycodone HCl (Oxycodone Immediate Release Tab) 10 mg PO Q6 PRN PRN Reason: Pain, moderate (4-7) Saccharomyces Boulardii (Florastor) 250 mg PO BID [facility] Last Admin: 05/26/18 11:00 Dose: 250 mg - Labs Labs: 05/26/18 04:20 05/26/18 04:20 PT 11.7 Seconds (9.8-13.1) 05/22/18 23:17 INR 1.1 05/22/18 23:17 APTT 31.2 Seconds (25.6-37.1) 05/22/18 23:17 - Extremities Exam Additional comments: L hip: Prevena intact, no drainage, mild swelling sensation intact SP/DP/TN motor intact EHl/FHL pedal pulses intact comps soft NT Assessment and Plan (1) Intertrochanteric fracture of left hip Assessment & Plan: POD #1 s/p L hip fx fixation with IM nail -pain control -PT/OT NWB LLE -DVT ppx -discharge planning -above d/w Dr. Carmichael in agreement Status: Acute
--- NOTE | 2018-05-26 20:19 | PN ---
DATE: 05/26/2018 ENDO FOLLOWUP NOTE LOCATION: In room 407. SUBJECTIVE: This is an 87-year-old female with recent uncontrolled type 2 insulin-requiring diabetes, sustaining a left hip fracture and underwent a left open reduction and internal fixation procedure yesterday. Her glycemic levels are fluctuating, but improved and the glucose values have ranged from 180 to 284 and 206 mg/dL. LABORATORY DATA: Her latest chemistry showed a BUN of 18, sodium 138, potassium 4.5, chloride 111, CO2 of 23, glucose 178, and creatinine 0.9. ASSESSMENT AND PLAN: So at this time, we will continue the same basal insulin given as Levemir at 24 units subcutaneously at bedtime daily as given. We will continue also the low-dose correction scale using Humalog insulin as given. We will restart her oral hypoglycemic therapy tomorrow with Januvia given as 100 mg daily as ordered and also glipizide given as 10 mg b.i.d. before meals as ordered. We will obtain serial chemistries and supplement accordingly as needed. We will follow. Dixie Zepeda MD
[2018-05-26] MEDS: Insulin Detemir 100 Units/ml Inj SC SCH (22:47)
[2018-05-27 05:43] LABS: HEMOGLOBIN 9.8 g/dL (12.0-16.0); MEAN CORPUSCULAR HEMOGLOBIN 31.8 pg (27.0-31.0); MEAN CORPUSCULAR HGB CONC 34.2 g/dL (33.0-37.0); RBC 3.07 Mil/uL (3.80-5.20); RED CELL DISTRIBUTION WIDTH 13.5 % (11.5-14.5); WHITE BLOOD COUNT 12.4 K/uL (4.8-10.8)
[2018-05-27 06:17] LABS: BLOOD UREA NITROGEN 23 mg/dl (7-17); CALCIUM 8.1 mg/dL (8.4-10.2); GFR NON-AFRICAN AMERICAN 52
[2018-05-27] MEDS: Insulin Lispro (humaLOG) 100 Units/ml Inj SC SCH ×4 (06:47→18:01)
--- NOTE | 2018-05-27 08:24 | OP ---
PROCEDURE DATE: 05/25/2018 PREOPERATIVE DIAGNOSIS: Displaced comminuted intertrochanteric fracture of the left hip. POSTOPERATIVE DIAGNOSIS: Displaced comminuted intertrochanteric fracture of the left hip. OPERATIVE PROCEDURES: 1. Open reduction internal fixation of displaced intertrochanteric femur fracture with interlocking intramedullary nail. 2. Release of iliopsoas tendon. 3. Autograft and allograft bone grafting. 4. Positioning of fluoroscope interpretation of video images. 5. Application of Prevena wound VAC. SURGEON: Elvis Carmichael MD. FACILITY MAINTENANCE MECHANIC: Sharyn Portillo, certified registered nursing hotel administrative assistant. ANESTHESIA: General endotracheal anesthesia. ANESTHESIOLOGIST: Dr. Ziggy Kimball. COMPLICATIONS: No complications. DRAIN: No drains. ESTIMATED BLOOD LOSS: Approximately 320 mL. BLOOD COMPONENTS: 3 units of packed red blood cells totally transfused. OPERATIVE INDICATION: Pina Calvillo is an 86-year-old woman who presents with a displaced comminuted left intertrochanteric femur fracture. The patient presents with marked discomfort, pain and restricted range of motion. The patient is attended by me in the emergency room Friday morning approximately 08:45. The patient is admitted to the hospital as medical stabilization was accomplished. Pros, cons, risks and benefits of surgical approach were discussed. The possibility of mechanical failure, infection, thromboembolic disease, possibility of secondary or tertiary surgery was discussed. The patient can no longer withstand the discomfort and wished the surgery to be accomplished. OPERATIVE PROCEDURE: After having obtained informed consent from the patient and her son, . After having identified side, site and procedure and critical pause/time-out after the satisfactory induction of the anesthetic, the patient identified as Pina Calvillo in the supine position with all bony prominences well padded. The left lower extremity is placed in the traction positioner. Under the surgeon's direction, the fluoroscope was positioned, video images were generated and therapeutic decisions were made therefrom. The right lower extremity is placed in a well leg traction. The left lower extremity is placed in the traction device and the traction was accomplished with traction and internal rotation. This having been accomplished, the fracture is reduced satisfactorily. An open reduction internal fixation will be needed to appose the fracture fragments. An incision was described in the area of the greater trochanter and is described extending distally and proximally approximately 7-8 inches. The skin incision was carried down through the skin and subcutaneous tissue after having identified the side, site and procedure and critical pause/time-out. After a critical pause/time-out and after satisfactory induction of the anesthetic, after having identified side, site and procedure, the skin incision was carried down through the skin and subcutaneous tissue. The fascia mis was divided, the gluteus chichi musculature was divided. The vastus lateralis was turned down and there was found be evidence of comminution in the area of the fracture site. This having been accomplished, the greater trochanter was identified. The guidewire was placed in the greater trochanter and this having been accomplished, reaming was accomplished to open up the greater trochanter. This having been accomplished, the verification of position is offered on AP and lateral image intensification views. It should be noted that fracture site is mobilized, the iliopsoas tendon was palpated and was carefully released using electrocautery. At this point in time using the towel clip bone holding clamps, the fracture site is reduced. At this point in time, the guidewire was introduced. The guidewire having been introduced, the appropriate size short intertrochanteric left nail is introduced and verification of position is offered on image intensification views, AP and lateral image intensification views revealed reduction to be acceptable. The guidewire was removed. The pin is introduced and verification of position of the nail is verified. At this point in time, the incision was extended and the TFN guidewire was introduced. Verification of position is offered on AP and lateral image intensification views and found to be excellent. This having been accomplished, the sizing was accomplished to 95 mm and with the introduction into the nail, the 95 mm triflange nail was introduced and it was malleted into position. At this point in time, the distal tube was placed. Drilling was accomplished, verification of size was found to be 38 mm. A 38 mm screw was placed in the interlocking mode. This having been accomplished, verification of position was accomplished. The iliopsoas tendon having been released at this point in time, autograft, allograft bone grafting was accomplished to the fracture. The position was found to be acceptable on AP and lateral image intensification views. This having been accomplished, the wound was thoroughly irrigated. Closures in layers with interrupted Arthrex FiberWire and Vicryl, autograft and allograft bone grafting had been applied. Closures in layers. Arthrex FiberWire followed by #2 Quill, followed by 0 Quill, Vicryl and ange for skin. A Prevena wound VAC was cut to position and is applied. The wound VAC having been applied, compression dressing was applied. Elvis Carmichael MD
[2018-05-27] MEDS ORDERED: Povidone Iodine Topical 10% Sol ONE (08:29)
[2018-05-27] MEDS: Saccharomyces Boulardi 250 mg Cap PO SCH ×2 (08:49→17:07)
[2018-05-27] MEDS: Enoxaparin 30 mg Syringe SC SCH (08:53)
--- NOTE | 2018-05-27 09:04 | CP.PCM.DIS ---
<Marcela Dee - Last Filed: 05/27/18 13:48> Provider - Provider Date of Admission: 05/23/18 00:53 Attending physician: Alejandro Sotomayor Consults: Dr. Zepeda- endocrinology Dr. Carmichael- Orthopedic surgery Time Spent in preparation of Discharge (in minutes): 30 Diagnosis - Discharge Diagnosis (1) Hip fracture, left Status: Acute (2) Hyperkalemia Status: Acute Comment: Resolved. (3) UTI (urinary tract infection) Status: Acute Comment: Continue Ceftriaxone 1 gm daily for 1 week. (4) Anemia Status: Acute (5) Dehydration Status: Acute (6) Neutrophilic leukocytosis Status: Acute (7) DM2 (diabetes mellitus, type 2) Status: Chronic (8) Hypothyroidism Status: Chronic Hospital Course - Lab Results Lab Results: Micro Results 05/23/18 03:10 Blood-Venous Blood Culture - Preliminary NO GROWTH AFTER 4 DAYS 05/23/18 03:00 Blood-Venous Blood Culture - Preliminary NO GROWTH AFTER 4 DAYS 05/23/18 02:00 Urine,Catheterized Urine Culture - Final Escherichia Coli Most Recent Lab Values WBC 12.4 K/uL (4.8-10.8) H 05/27/18 04:20 RBC 3.07 Mil/uL (3.80-5.20) L 05/27/18 04:20 Hgb 9.8 g/dL (12.0-16.0) L 05/27/18 04:20 Hct 28.6 % (34.0-47.0) L 05/27/18 04:20 MCV 93.0 fl (81.0-99.0) 05/27/18 04:20 MCH 31.8 pg (27.0-31.0) H 05/27/18 04:20 MCHC 34.2 g/dL (33.0-37.0) 05/27/18 04:20 RDW 13.5 % (11.5-14.5) 05/27/18 04:20 Plt Count 157 K/uL (130-400) 05/27/18 04:20 MPV 10.2 fl (7.2-11.7) 05/22/18 23:17 Neut % (Auto) 80.2 % (50.0-75.0) H 05/22/18 23:17 Lymph % (Auto) 14.5 % (20.0-40.0) L 05/22/18 23:17 [place] % (Auto) 4.7 % (0.0-10.0) 05/22/18 23:17 Eos % (Auto) 0.1 % (0.0-4.0) 05/22/18 23:17 Baso % (Auto) 0.5 % (0.0-2.0) 05/22/18 23:17 Neut # (Auto) 11.5 K/uL (1.8-7.0) H 05/22/18 23:17 Lymph # (Auto) 2.1 K/uL (1.0-4.3) 05/22/18 23:17 [place] # (Auto) 0.7 K/uL (0.0-0.8) 05/22/18 23:17 Eos # (Auto) 0.0 K/uL (0.0-0.7) 05/22/18 23:17 Baso # (Auto) 0.1 K/uL (0.0-0.2) 05/22/18 23:17 PT 11.7 Seconds (9.8-13.1) 05/22/18 23:17 INR 1.1 05/22/18 23:17 APTT 31.2 Seconds (25.6-37.1) 05/22/18 23:17 pO2 21 mm/Hg (30-55) L 05/22/18 23:46 VBG pH 7.34 (7.32-7.43) 05/22/18 23:46 VBG pCO2 45 mmHg (40-60) 05/22/18 23:46 VBG HCO3 22.0 mmol/L 05/22/18 23:46 VBG Total CO2 25.7 mmol/L (22-28) 05/22/18 23:46 VBG O2 Sat (Calc) 37.2 % (40-65) L 05/22/18 23:46 VBG Base Excess -1.7 mmol/L (0.0-2.0) L 05/22/18 23:46 VBG Potassium 6.3 mmol/L (3.6-5.2) H* 05/22/18 23:46 Sodium 130.0 mmol/L (132-148) L 05/22/18 23:46 Chloride 97.0 mmol/L (98-107) L 05/22/18 23:46 Glucose 600 mg/dL (65-105) H* 05/22/18 23:46 Lactate 3.0 mmol/L (0.7-2.1) H 05/22/18 23:46 FiO2 21.0 % 05/22/18 23:46 Crit Value Called To Dr anjali berrios 05/22/18 23:46 Crit Value Called By Luis 05/22/18 23:46 Crit Value Read Back Y 05/22/18 23:46 Blood Gas Notified Time 13 05/22/18 23:46 Sodium 136 mmol/l (132-148) 05/27/18 04:20 Potassium 4.0 MMOL/L (3.6-5.0) 05/27/18 04:20 Chloride 107 mmol/L (98-107) 05/27/18 04:20 Carbon Dioxide 22 mmol/L (22-30) 05/27/18 04:20 Anion Gap 11 (10-20) 05/27/18 04:20 BUN 23 mg/dl (7-17) H 05/27/18 04:20 Creatinine 1.0 mg/dl (0.7-1.2) 05/27/18 04:20 Est GFR ( Amer) > 60 05/27/18 04:20 Est GFR (Non-Af Amer) 52 05/27/18 04:20 POC Glucose (mg/dL) 322 mg/dL (65-110) H 05/27/18 05:24 Random Glucose 307 mg/dL (65-105) H 05/27/18 04:20 Hemoglobin A1c 12.0 % (4.2-6.5) H 05/23/18 05:20 Serum Osmolality 318 mosm/kg (272-300) H 05/22/18 23:17 Calcium 8.1 mg/dL (8.4-10.2) L 05/27/18 04:20 Phosphorus 4.1 mg/dl (2.5-4.5) 05/22/18 23:17 Magnesium 2.1 MG/DL (1.6-2.3) 05/23/18 05:20 Total Bilirubin 0.8 mg/dl (0.2-1.3) 05/23/18 05:20 AST 45 U/L (14-36) H D 05/23/18 05:20 ALT 42 U/L (9-52) 05/23/18 05:20 Alkaline Phosphatase 74 U/L (38-126) 05/23/18 05:20 Total Creatine Kinase 30 U/L (30-135) 05/22/18 23:17 Troponin I 0.0200 ng/mL (0.00-0.120) 05/23/18 08:11 Total Protein 6.1 G/DL (6.3-8.2) L 05/23/18 05:20 Albumin 3.1 g/dL (3.5-5.0) L D 05/23/18 05:20 Globulin 2.9 gm/dL (2.2-3.9) 05/23/18 05:20 Albumin/Globulin Ratio 1.1 (1.0-2.1) 05/23/18 05:20 Triglycerides 253 mg/DL (0-149) H 05/24/18 05:20 Cholesterol 130 mg/dL (0-199) 05/24/18 05:20 LDL Cholesterol Direct 55 mg/dL (0-129) 05/24/18 05:20 HDL Cholesterol 28 MG/DL (30-70) L 05/24/18 05:20 25-OH Vitamin D Total < 12.8 NG/ML (30.0-100.0) L 05/26/18 04:20 Thyroxine (T4) 5.91 ug/dl (5.5-11.0) 05/23/18 19:32 Total T3 0.735 nmol/L (1.49-2.60) L 05/23/18 19:32 TSH 3rd Generation 0.26 mIU/ML (0.46-4.68) L 05/23/18 08:11 Venous Blood Potassium 6.3 mmol/L (3.6-5.2) H* 05/22/18 23:46 Urine Color Yellow (YELLOW) 05/23/18 02:00 Urine Clarity Cloudy (Clear) 05/23/18 02:00 Urine pH 5.0 (5.0-8.0) 05/23/18 02:00 Ur Specific [place] 1.018 (1.003-1.030) 05/23/18 02:00 Urine Protein Negative mg/dL (NEGATIVE) 05/23/18 02:00 Urine Glucose (UA) >=500 mg/dL (Normal) 05/23/18 02:00 Urine Ketones Negative mg/dL (NEGATIVE) 05/23/18 02:00 Urine Blood Negative (NEGATIVE) 05/23/18 02:00 Urine Nitrate Positive (NEGATIVE) H 05/23/18 02:00 Urine Bilirubin Negative (NEGATIVE) 05/23/18 02:00 Urine Urobilinogen 0.2-1.0 mg/dL (0.2-1.0) 05/23/18 02:00 Ur Leukocyte Esterase Large Wesley/uL (Negative) 05/23/18 02:00 Urine RBC (Auto) 1 /hpf (0-3) 05/23/18 02:00 Urine WBC Clumps (Auto) Many /hpf (NONE) H 05/23/18 02:00 Urine Microscopic WBC 69 /hpf (0-5) H 05/23/18 02:00 Ur Squamous Epith Cells < 1 /hpf (0-5) 05/23/18 02:00 Urine Bacteria Occ (<OCC) H 05/23/18 02:00 Blood Type O POSITIVE 05/25/18 09:30 Antibody Screen Negative 05/25/18 09:30 Crossmatch See Detail 05/25/18 09:30 BBK History Checked Patient has bt 05/25/18 09:30 - Hospital Course Hospital Course: The patient was seen and examined in the ED with her family present The patient speaks [place] and the hx was obtained from the Family members and after review of the medial records. This is an 87 years old female with hx of Asthma, DM II and Hypothyroidism, using a walker at home. Tonight she was ambulating without her walker when she loose balance and fell . She complains of left hip pain. No headaches, dizziness, chest pain, coughing, vomits, Palpitation, diarrhea nor urinary symptoms. PMH: Asthma; DM II; Hypothyroidism; PSH: Family denies Surgical Hx SH: No illegal drug use; Never Smoked; No alcohol use; Live with the family FH: States: No known amily hx Allergies: NKDA ED course: V/S: 140/67 ; HR: 90 ; RR: 15 ; Temp: 98.6F ; O2 Saturation: 99% room air. EKG: NSR 75/min; LAD; IVCD X ray of left hip: left Intertrochanteric fracture --Labs demonstrated sever hyperglycemia and hyperkalemia. Floor Course: Patient was admitted to Telemetry. Patient was found to have UTI- positive culture for E.Coli sensitive to Ceftriaxone 1 gm IV daily. Orthopedic consult was placed- Dr. Carmichael and ORIF of left hip was completed 05/25. She recieved 3 units of prbc's and FFP during the procedure. Endocrinology consult was appreciated, Patient's levemir was optimized to 30 u HS to achieve appropriate glucose control. Patient is being discharged to [facility]. Discharge Exam - Head Exam Head Exam: ATRAUMATIC, NORMAL INSPECTION, NORMOCEPHALIC - ENT Exam ENT Exam: Mucous Membranes Moist - Respiratory Exam Respiratory Exam: Clear to PA & Lateral, NORMAL BREATHING PATTERN. absent: Chest Wall Tenderness, Decreased Breath Sounds, Rales, Rhonchi, Wheezes, Stridor - Cardiovascular Exam Cardiovascular Exam: REGULAR RHYTHM, RRR, +S1, +S2. absent: Diastolic murmur, Rubs, +S4, Systolic Murmur - GI/Abdominal Exam GI & Abdominal Exam: Normal Bowel Sounds. absent: Distended, Firm, Guarding, Rigid, Soft, Tenderness - Extremities Exam Extremities exam: pedal pulses present Additional comments: Would dressed with clean dressing. Non-soaked. - Neurological Exam Additional comments: At baseline- confused and not oriented. - Skin Skin Exam: Dry, Intact, Normal Color, Warm Discharge Plan - Discharge Medications Prescriptions: cefTRIAXone [Rocephin] 1 gm IV DAILY 7 Days #7 vial Insulin Detemir [Levemir] 30 units SC HS #1 vial - Follow Up Plan Condition: GOOD Disposition: TRANSF TO SNF Patient education suggested?: Yes Instructions: Hip Fracture, Hyperglycemia, Adult (DC), Dehydration (DC), Urinary Tract Infection in Women (DC), Urinary Tract Infection in Men (DC), Leukocytosis (DC), Leukocytosis (GEN), Dysuria (GEN) Additional Instructions: TTWB to LLE ff up with Dr Carmichael in 1 wk ff up with DR Montalvo after d/c from [facility] Referrals: Elvis Carmichael III, MD [Staff Provider] - Hola Montalvo MD [Family Provider] - Dixie Zepeda MD [Medical Doctor] - <MosquedaSnehal - Last Filed: 05/27/18 17:13> Provider - Provider Date of Admission: 05/23/18 00:53 Attending physician: Alejandro Sotomayor [place] Hospital Course - Lab Results Lab Results: Micro Results 05/23/18 03:10 Blood-Venous Blood Culture - Preliminary NO GROWTH AFTER 4 DAYS 05/23/18 03:00 Blood-Venous Blood Culture - Preliminary NO GROWTH AFTER 4 DAYS 05/23/18 02:00 Urine,Catheterized Urine Culture - Final Escherichia Coli Most Recent Lab Values WBC 12.4 K/uL (4.8-10.8) H 05/27/18 04:20 RBC 3.07 Mil/uL (3.80-5.20) L 05/27/18 04:20 Hgb 9.8 g/dL (12.0-16.0) L 05/27/18 04:20 Hct 28.6 % (34.0-47.0) L 05/27/18 04:20 MCV 93.0 fl (81.0-99.0) 05/27/18 04:20 MCH 31.8 pg (27.0-31.0) H 05/27/18 04:20 MCHC 34.2 g/dL (33.0-37.0) 05/27/18 04:20 RDW 13.5 % (11.5-14.5) 05/27/18 04:20 Plt Count 157 K/uL (130-400) 05/27/18 04:20 MPV 10.2 fl (7.2-11.7) 05/22/18 23:17 Neut % (Auto) 80.2 % (50.0-75.0) H 05/22/18 23:17 Lymph % (Auto) 14.5 % (20.0-40.0) L 05/22/18 23:17 [place] % (Auto) 4.7 % (0.0-10.0) 05/22/18 23:17 Eos % (Auto) 0.1 % (0.0-4.0) 05/22/18 23:17 Baso % (Auto) 0.5 % (0.0-2.0) 05/22/18 23:17 Neut # (Auto) 11.5 K/uL (1.8-7.0) H 05/22/18 23:17 Lymph # (Auto) 2.1 K/uL (1.0-4.3) 05/22/18 23:17 [place] # (Auto) 0.7 K/uL (0.0-0.8) 05/22/18 23:17 Eos # (Auto) 0.0 K/uL (0.0-0.7) 05/22/18 23:17 Baso # (Auto) 0.1 K/uL (0.0-0.2) 05/22/18 23:17 PT 11.7 Seconds (9.8-13.1) 05/22/18 23:17 INR 1.1 05/22/18 23:17 APTT 31.2 Seconds (25.6-37.1) 05/22/18 23:17 pO2 21 mm/Hg (30-55) L 05/22/18 23:46 VBG pH 7.34 (7.32-7.43) 05/22/18 23:46 VBG pCO2 45 mmHg (40-60) 05/22/18 23:46 VBG HCO3 22.0 mmol/L 05/22/18 23:46 VBG Total CO2 25.7 mmol/L (22-28) 05/22/18 23:46 VBG O2 Sat (Calc) 37.2 % (40-65) L 05/22/18 23:46 VBG Base Excess -1.7 mmol/L (0.0-2.0) L 05/22/18 23:46 VBG Potassium 6.3 mmol/L (3.6-5.2) H* 05/22/18 23:46 Sodium 130.0 mmol/L (132-148) L 05/22/18 23:46 Chloride 97.0 mmol/L (98-107) L 05/22/18 23:46 Glucose 600 mg/dL (65-105) H* 05/22/18 23:46 Lactate 3.0 mmol/L (0.7-2.1) H 05/22/18 23:46 FiO2 21.0 % 05/22/18 23:46 Crit Value Called To Dr anjali berrios 05/22/18 23:46 Crit Value Called By Luis 05/22/18 23:46 Crit Value Read Back Y 05/22/18 23:46 Blood Gas Notified Time 13 05/22/18 23:46 Sodium 136 mmol/l (132-148) 05/27/18 04:20 Potassium 4.0 MMOL/L (3.6-5.0) 05/27/18 04:20 Chloride 107 mmol/L (98-107) 05/27/18 04:20 Carbon Dioxide 22 mmol/L (22-30) 05/27/18 04:20 Anion Gap 11 (10-20) 05/27/18 04:20 BUN 23 mg/dl (7-17) H 05/27/18 04:20 Creatinine 1.0 mg/dl (0.7-1.2) 05/27/18 04:20 Est GFR ( Amer) > 60 05/27/18 04:20 Est GFR (Non-Af Amer) 52 05/27/18 04:20 POC Glucose (mg/dL) 295 mg/dL (65-110) H 05/27/18 15:51 Random Glucose 307 mg/dL (65-105) H 05/27/18 04:20 Hemoglobin A1c 12.0 % (4.2-6.5) H 05/23/18 05:20 Serum Osmolality 318 mosm/kg (272-300) H 05/22/18 23:17 Calcium 8.1 mg/dL (8.4-10.2) L 05/27/18 04:20 Phosphorus 4.1 mg/dl (2.5-4.5) 05/22/18 23:17 Magnesium 2.1 MG/DL (1.6-2.3) 05/23/18 05:20 Total Bilirubin 0.8 mg/dl (0.2-1.3) 05/23/18 05:20 AST 45 U/L (14-36) H D 05/23/18 05:20 ALT 42 U/L (9-52) 05/23/18 05:20 Alkaline Phosphatase 74 U/L (38-126) 05/23/18 05:20 Total Creatine Kinase 30 U/L (30-135) 05/22/18 23:17 Troponin I 0.0200 ng/mL (0.00-0.120) 05/23/18 08:11 Total Protein 6.1 G/DL (6.3-8.2) L 05/23/18 05:20 Albumin 3.1 g/dL (3.5-5.0) L D 05/23/18 05:20 Globulin 2.9 gm/dL (2.2-3.9) 05/23/18 05:20 Albumin/Globulin Ratio 1.1 (1.0-2.1) 05/23/18 05:20 Triglycerides 253 mg/DL (0-149) H 05/24/18 05:20 Cholesterol 130 mg/dL (0-199) 05/24/18 05:20 LDL Cholesterol Direct 55 mg/dL (0-129) 05/24/18 05:20 HDL Cholesterol 28 MG/DL (30-70) L 05/24/18 05:20 25-OH Vitamin D Total < 12.8 NG/ML (30.0-100.0) L 05/26/18 04:20 Thyroxine (T4) 5.91 ug/dl (5.5-11.0) 05/23/18 19:32 Total T3 0.735 nmol/L (1.49-2.60) L 05/23/18 19:32 TSH 3rd Generation 0.26 mIU/ML (0.46-4.68) L 05/23/18 08:11 Venous Blood Potassium 6.3 mmol/L (3.6-5.2) H* 05/22/18 23:46 Urine Color Yellow (YELLOW) 05/23/18 02:00 Urine Clarity Cloudy (Clear) 05/23/18 02:00 Urine pH 5.0 (5.0-8.0) 05/23/18 02:00 Ur Specific [place] 1.018 (1.003-1.030) 05/23/18 02:00 Urine Protein Negative mg/dL (NEGATIVE) 05/23/18 02:00 Urine Glucose (UA) >=500 mg/dL (Normal) 05/23/18 02:00 Urine Ketones Negative mg/dL (NEGATIVE) 05/23/18 02:00 Urine Blood Negative (NEGATIVE) 05/23/18 02:00 Urine Nitrate Positive (NEGATIVE) H 05/23/18 02:00 Urine Bilirubin Negative (NEGATIVE) 05/23/18 02:00 Urine Urobilinogen 0.2-1.0 mg/dL (0.2-1.0) 05/23/18 02:00 Ur Leukocyte Esterase Large [place]/uL (Negative) 05/23/18 02:00 Urine RBC (Auto) 1 /hpf (0-3) 05/23/18 02:00 Urine WBC Clumps (Auto) Many /hpf (NONE) H 05/23/18 02:00 Urine Microscopic WBC 69 /hpf (0-5) H 05/23/18 02:00 Ur Squamous Epith Cells < 1 /hpf (0-5) 05/23/18 02:00 Urine Bacteria Occ (<OCC) H 05/23/18 02:00 Blood Type O POSITIVE 05/25/18 09:30 Antibody Screen Negative 05/25/18 09:30 Crossmatch See Detail 05/25/18 09:30 BBK History Checked Patient has bt 05/25/18 09:30 Attending/Attestation - Attestation I have personally seen and examined this patient.: Yes I have fully participated in the care of the patient.: Yes I have reviewed all pertinent clinical information, including history, physical exam and plan: Yes
--- NOTE | 2018-05-27 09:29 | CP.PCM.PN ---
Subjective - Date & Time of Evaluation Date of Evaluation: 05/27/18 Time of Evaluation: 07:30 - Subjective Subjective: Patient seen and examined at bedside comfortable. Pain controlled. Baseline confusion 2nd to dementia, arousable. No acute events overnight. Objective - Vital Signs/Intake and Output Vital Signs (last 24 hours): Temp Pulse Resp BP Pulse Ox 97.6 F 74 20 134/70 100 05/27/18 09:01 05/27/18 08:25 05/27/18 08:25 05/27/18 08:25 05/27/18 08:25 - Medications Medications: Current Medications Acetaminophen (Tylenol 325mg Tab) 975 mg PO Q8 [facility] Last Admin: 05/27/18 09:01 Dose: 975 mg Albuterol/Ipratropium (Duoneb 3 Mg/0.5 Mg (3 Ml) Ud) 3 ml INH RQ6 PRN PRN Reason: Shortness of Breath Last Admin: 05/25/18 22:56 Dose: 3 ml Docusate Sodium (Colace) 100 mg PO BID [facility] Last Admin: 05/27/18 08:46 Dose: 100 mg Enoxaparin Sodium (Lovenox) 30 mg SC DAILY [facility]; Protocol Last Admin: 05/27/18 08:53 Dose: 30 mg Ferrous Sulfate (Feosol) 325 mg PO BID [facility] Last Admin: 05/27/18 08:47 Dose: 325 mg Folic Acid (Folic Acid) 1 mg PO DAILY [facility] Last Admin: 05/27/18 08:50 Dose: 1 mg Glipizide (Glucotrol) [facility] Last Admin: 05/27/18 08:51 Dose: 10 mg Hydrochlorothiazide (Hydrodiuril) 25 mg PO DAILY [facility] Last Admin: 05/27/18 08:52 Dose: 25 mg Ceftriaxone Sodium 1 gm/ (Sodium Chloride) 100 mls @ 100 mls/hr IVPB DAILY [facility]; Protocol Last Admin: 05/27/18 08:55 Dose: 100 mls/hr Insulin Detemir (Levemir) 30 units SC HS [facility] Insulin Human Lispro (Humalog) 0 units SC ACHS [facility] Last Admin: 05/27/18 06:47 Dose: 5 units Morphine Sulfate (Morphine) 2 mg IVP Q4 PRN PRN Reason: Pain, severe (8-10) Last Admin: 05/24/18 03:26 Dose: 2 mg Morphine Sulfate (Morphine) 1 mg IVP Q4 PRN PRN Reason: Pain, moderate (4-7) Last Admin: 05/26/18 00:01 Dose: 1 mg Ondansetron HCl (Zofran Inj) 4 mg IVP ONCE PRN PRN Reason: Nausea/Vomiting Oxycodone HCl (Oxycodone Immediate Release Tab) 10 mg PO Q6 PRN PRN Reason: Pain, moderate (4-7) Saccharomyces Boulardii (Florastor) 250 mg PO BID [facility] Last Admin: 05/27/18 08:49 Dose: 250 mg Sitagliptin Phosphate (Januvia) 100 mg PO DAILY [facility] Last Admin: 05/27/18 08:52 Dose: 100 mg - Labs Labs: 05/27/18 04:20 05/27/18 04:20 PT 11.7 Seconds (9.8-13.1) 05/22/18 23:17 INR 1.1 05/22/18 23:17 APTT 31.2 Seconds (25.6-37.1) 05/22/18 23:17 - Extremities Exam Additional comments: L hip: Prevena intact, scant drainage in cannister, mild swelling prevena removed revealing wound CDI with ange sensation intact SP/DP/TN motor intact EHl/FHL pedal pulses intact comps soft NT Assessment and Plan (1) Intertrochanteric fracture of left hip Assessment & Plan: POD #2 s/p L hip fx fixation with IM nail -dressings changed -PT/OT NWB LLE -DVT ppx -orthopedically stable for d/c to [facility] -f/u in office in 7-10 days -above d/w Dr. Carmichael in agreement Status: Acute
--- NOTE | 2018-05-27 10:18 | CP.PCM.PN ---
Subjective - Date & Time of Evaluation Date of Evaluation: 05/27/18 Time of Evaluation: 07:15 - Subjective Subjective: NO CHEST PAIN OR SOB Objective - Vital Signs/Intake and Output Vital Signs (last 24 hours): Temp Pulse Resp BP Pulse Ox 97.6 F 74 20 134/70 100 05/27/18 09:01 05/27/18 08:25 05/27/18 08:25 05/27/18 08:25 05/27/18 08:25 - Medications Medications: Current Medications Acetaminophen (Tylenol 325mg Tab) 975 mg PO Q8 [facility] Last Admin: 05/27/18 09:01 Dose: 975 mg Albuterol/Ipratropium (Duoneb 3 Mg/0.5 Mg (3 Ml) Ud) 3 ml INH RQ6 PRN PRN Reason: Shortness of Breath Last Admin: 05/25/18 22:56 Dose: 3 ml Docusate Sodium (Colace) 100 mg PO BID [facility] Last Admin: 05/27/18 08:46 Dose: 100 mg Enoxaparin Sodium (Lovenox) 30 mg SC DAILY [facility]; Protocol Last Admin: 05/27/18 08:53 Dose: 30 mg Ferrous Sulfate (Feosol) 325 mg PO BID [facility] Last Admin: 05/27/18 08:47 Dose: 325 mg Folic Acid (Folic Acid) 1 mg PO DAILY [facility] Last Admin: 05/27/18 08:50 Dose: 1 mg [facility] Last Admin: 05/27/18 08:51 Dose: 10 mg Hydrochlorothiazide (Hydrodiuril) 25 mg PO DAILY [facility] Last Admin: 05/27/18 08:52 Dose: 25 mg Ceftriaxone Sodium 1 gm/ (Sodium Chloride) 100 mls @ 100 mls/hr IVPB DAILY [facility]; Protocol Last Admin: 05/27/18 08:55 Dose: 100 mls/hr Insulin Detemir (Levemir) 30 units SC HS [facility] Insulin Human Lispro (Humalog) 0 units SC ACHS [facility] Last Admin: 05/27/18 06:47 Dose: 5 units Morphine Sulfate (Morphine) 2 mg IVP Q4 PRN PRN Reason: Pain, severe (8-10) Last Admin: 05/24/18 03:26 Dose: 2 mg Morphine Sulfate (Morphine) 1 mg IVP Q4 PRN PRN Reason: Pain, moderate (4-7) Last Admin: 05/26/18 00:01 Dose: 1 mg Ondansetron HCl (Zofran Inj) 4 mg IVP ONCE PRN PRN Reason: Nausea/Vomiting Oxycodone HCl (Oxycodone Immediate Release Tab) 10 mg PO Q6 PRN PRN Reason: Pain, moderate (4-7) Saccharomyces Boulardii (Florastor) 250 mg PO BID [facility] Last Admin: 05/27/18 08:49 Dose: 250 mg Sitagliptin Phosphate (Januvia) 100 mg PO DAILY [facility] Last Admin: 05/27/18 08:52 Dose: 100 mg - Labs Labs: 05/27/18 04:20 05/27/18 04:20 PT 11.7 Seconds (9.8-13.1) 05/22/18 23:17 INR 1.1 05/22/18 23:17 APTT 31.2 Seconds (25.6-37.1) 05/22/18 23:17 - Respiratory Exam Respiratory Exam: Clear to Ausculation Bilateral - Cardiovascular Exam Cardiovascular Exam: REGULAR RHYTHM, +S1, +S2 - Extremities Exam Additional comments: LEFT THIGH WITH DRESSINGS Assessment and Plan - Assessment and Plan (Free Text) Assessment: SURGICAL REPAIR OF LEFT HIP FRACTURE HYPERTENSION DM Plan: CONTINUE LOVENOX, HCTZ AND DM MEDICATIONS
[2018-05-27 13:23] VITALS: PULSE 69; RESP 18
[2018-05-27 15:38] VITALS: BP 143/92; TEMP 97.5; O2SAT 100
--- NOTE | 2018-05-27 16:51 | RAD ---
Date of service: 05/25/2018 PROCEDURE: Open reduction internal fixation left hip fracture HISTORY: LEFT HIP COMPARISON: None TECHNIQUE: Standard protocol for this study/examination. FINDINGS: Total fluoroscopic time (continuous mode) utilized during the procedure 98.6 (seconds). IMPRESSION: Less than 1 hr fluoroscopic assistance provided during performance of the procedure.
--- NOTE | 2018-05-27 19:43 | PN ---
DATE: 05/27/2018 ENDO FOLLOWUP NOTE LOCATION: In room 407. SUBJECTIVE: This is an 87-year-old female with recent uncontrolled type 2 insulin-requiring diabetes, especially noted postoperatively with marked hyperglycemic accelerations as noted thereof. She was actually taking a combination of oral hypoglycemic therapy prior to this admission. Her glucose values have been fluctuating and have ranged from 267 to 322 and 387 mg/dL. LABORATORY DATA: Her latest chemistry showed a BUN of 23, sodium 136, potassium 4, chloride 107, CO2 of 22, glucose 307, and creatinine 1. ASSESSMENT AND PLAN: So at this time, we will continue the basal insulin given as a higher dosing of Levemir at 40 units subcutaneously at bedtime daily as given. We will also continue the dual oral hypoglycemic drug therapy as ordered with glipizide given as 10 mg b.i.d. and metformin as 500 mg b.i.d. after meals as ordered. We will obtain serial chemistries and supplement accordingly as needed. We will try to hold off the initiation of prandial or bolus insulin regimen before meals to simplify the patient's outpatient diabetic management. We will observe her glycemic fluctuations and if the same thing persists, then we will the consider the addition of Humalog given as 6 units t.i.d. before meals as given. We will titrate incrementally as indicated to optimize metabolic control. We will follow and advise accordingly. Dixie Zepeda MD
[2018-05-27] MEDS ORDERED: Insulin Detemir 100 Units/ml Inj SC SCH (22:00)
== END 2018-05-27 17:50 | DRG 481 ==
LOC: H.ER 22:58 → H.ERHOLD 05-23 00:53 → H.TEL 05-23 18:54
PROVIDERS: ADMIT Internal Medicine; ATTEND Internal Medicine
PROC: 0QU70KZ Supplement Left Upper Femur with Nonautologous Tissue Substitute, Open Approach (ICD-10-PCS; 2018-05-25)
PROC: 2W6PXZZ Traction of Left Upper Leg (ICD-10-PCS; 2018-05-25)
PROC: 30233N1 Transfusion of Nonautologous Red Blood Cells into Peripheral Vein, Percutaneous Approach (ICD-10-PCS; 2018-05-25)
PROC: 0QS706Z Reposition Left Upper Femur with Intramedullary Internal Fixation Device, Open Approach (ICD-10-PCS; principal; 2018-05-25 15:45)
DX: M84.652A Pathological fracture in other disease, left femur, initial encounter for fracture (principal); N39.0 Urinary tract infection, site not specified; M85.852 Other specified disorders of bone density and structure, left thigh; E11.65 Type 2 diabetes mellitus with hyperglycemia; E86.0 Dehydration; E87.5 Hyperkalemia; J45.909 Unspecified asthma, uncomplicated; E03.9 Hypothyroidism, unspecified; Z79.4 Long term (current) use of insulin; E11.319 Type 2 diabetes mellitus with unspecified diabetic retinopathy without macular edema; E11.51 Type 2 diabetes mellitus with diabetic peripheral angiopathy without gangrene; D64.9 Anemia, unspecified; I10 Essential (primary) hypertension; E78.00 Pure hypercholesterolemia, unspecified